=== PATIENT | male | born 1960 | race Asian ===

== ENCOUNTER → 2023-08-12 17:55 | Outpatient (REF) | payer OTHER, SELFPAY | LOC: RAD 17:55 | PROVIDERS: ATTENDING PHYSICIAN Nurse Practitioner Family; FAMILY PHYSICIAN Internal Medicine | DX: M25.562 Pain in left knee (principal) | CPT/HCPCS: 73564 ==

== ENCOUNTER 2023-08-16 09:45 | Outpatient (RCR) | payer OTHER, SELFPAY | END 2023-08-16 23:59 | disposition home or self-care (01) | LOC: RPT 09:45 | PROVIDERS: ATTENDING PHYSICIAN Nurse Practitioner Family; FAMILY PHYSICIAN Internal Medicine | DX: M25.562 Pain in left knee (principal); Z73.6 Limitation of activities due to disability; M62.81 Muscle weakness (generalized) | CPT/HCPCS: 97110; 97116; 97162 ==

== ENCOUNTER 2023-09-09 11:30 | Inpatient (IN) | payer OTHER, SELFPAY ==
[2023-09-05] VITALS (13 sets, daily range): BP systolic 91–127; BP diastolic 61–83; BMI 21.8; BMI 22.5
--- NOTE | 2023-09-05 12:58 | ED.GENMED ---
History of Present Illness
General
Chief Complaint: Chest Pain
Source: patient
Exam Limitations: none
Time Seen by Provider: 09/05/23 12:40
Travel History
Have you had any contact with someone who has COVID-19?: No
Do you have any symptoms of coronavirus? Fever > 100 degrees, chills, cough, shortness of breath, sore throat, loss of taste or smell, muscle aches, or headache?: No
History of Present Illness
History of Present Illness:
Patient presents to the emergency department with upper chest pain radiating to the anterior neck. Symptoms started while he was on the phone call around noon today. States he had some sweatiness with the pain and mild nausea. Pain did not
radiate into back or shoulders. Received full dose aspirin and nitro and route by medics. States nitro improved his symptoms slightly. No recent stress testing.
Phy Exam
Physical Exam
Physical Exam:
GENERAL APPEARANCE: NAD, well developed/ well nourished
EYES lids/conjunctiva normal
EARS/NOSE/THROAT Mucous membranes moist, uvula midline without oral pharyngeal erythema, exudate or swelling
HEAD/NECK normocephalic atraumatic, neck is supple.
RESPIRATORY respiratory effort normal, speaks in full sentences, no accessory muscle use. Lungs clear to auscultation without rhonchi, wheezes, rales
CARDIAC Regular rate and rhythm, no edema, equal 4 ext pulses
ABDOMINAL Soft, ND/NT. No pulsatile masses on exam, rebound tenderness, Desir sign or pain over Mcburney's point.
MUSCLES/EXTREMITIES No abnormal range of motion, no swelling.
SKIN Warm, pink and dry. No rashes
NEUROLOGICAL Speech is clear and appropriate. Normal level of consciousness. 5/5 strength in all extremities.
PSYCH Normal mood and affect. Judgement/competence is appropriate
Scores
Heart Score for Chest Pain Patients
STEMI patient?: No
History: Moderately Suspicious
ECG: Significant ST-Depression
Age: >45 - <65 years
Risk Factors: No Risk Factors
Troponin: </= Normal Limit
Heart Score for Chest Pain Patients: 4
Heart Score Risk: 20.3% MACE over next 6 weeks
Course
Orders/Labs/Results
Orders:
Orders
09/05/23 12:44
EKG [Electrocardiogram (*1)] Urgent
Reason for Study: Chest Pain
09/05/23 12:45
EKG- Treatment ONCE
09/05/23 12:52
CR Chest - 2 Views Urgent
Comment:
Reason For Exam: chest pain
Pulse Ox/cont/shift [RESP] Stat
Quantity: 1
09/05/23 12:58
Basic Metabolic Panel Urgent
Cardiovascular Evaluation Urgent
Comment: ADD ON
Complete Blood Count/With Diff Urgent
Troponin I Q3H
09/05/23 14:30
Morphine Sulfate 4 mg IV NOW STA
Nitroglycerin Sublingual [Nitrostat (Sublingual)] 0.4 mg SL NOW STA
09/05/23 14:31
Electrocardiogram (*1) Urgent
Reason for Study: Chest Pain
09/05/23 Dinner
Cholesterol Lowering
09/05/23 15:53
Troponin I Q3H
09/05/23 17:11
Add On- LAB Urgent
Tests Added?: CVE
09/05/23 18:01
CARDIOLOGY CONSULT Routine
Consulting Provider: Shen Arredondo
Was physician already notified: Yes
Reason for consult: chest pain ekg changes
09/05/23 18:02
Admit/Transfer Patient As Directed
Co-Sign Provider:
Level of Care: Observation services
Assign to:: Telemetry
Physician / Group: gilberto bell
Diagnosis: chest pain concern acs
Reason for Telemetry: Chest Pain syndromes
Date to Stop Telemetry: 09/07/23
Time to Stop Telemetry: 11:00
Reason for Hospitalization: chest pain concern acs
Code Status As Directed
Resuscitation Status: Full Code
09/05/23 18:07
Pantoprazole [Protonix] 40 mg PO NOW STA
09/05/23 19:36
Activity As Directed
Activity Level: As Tolerated
Vital Signs As Directed
Frequency: Per unit guidelines
Ot Eval And Treat Routine
Pt Eval And Treat Routine
Activity Level: As Tolerated
DX Deep Vein Thrombosis Video Routine
09/05/23 20:00
Heparin 5,000 units SC Q12
09/06/23 06:00
Echo 2D MMode Color/Doppler IN AM
Reason for Study: chest pain
NPO
Allow oral meds: Yes
Allow clear liquids: No
NPO with Ice Chips: No
Basic Metabolic Panel IN AM
Complete Blood Count/With Diff IN AM
09/06/23 08:00
Aspirin Chewable [Low Strength Aspirin] 81 mg PO DAILY
Pantoprazole [Protonix IV] 40 mg IV DAILY
09/07/23 11:00
DC Protocol for Telemetry ONCE
Abnormal Lab Results
09/05/23
12:58
Sodium 133 L mmol/L
(135-145)
09/05/23 12:58
09/05/23 12:58
Vital Signs
Initial and Last Documented VS:
Initial Vital Signs
BP
113/83
09/05/23 12:42
Last Documented Vital Signs
Temp Pulse Resp BP Pulse Ox
98.1 F 86 13 106/63 95
09/05/23 12:47 09/05/23 19:30 09/05/23 19:30 09/05/23 19:00 09/05/23 19:30
*Critical Care Note
Total Time (30-74mins, 75-104mins- exclusive of procedures): Not Applicable
ED Attending Note
ED Attending Note
ED Attending Note:
Patient presents the emergency department with centralized chest pain radiating into neck. Did have associated nausea and diaphoresis. Currently appears well and nontoxic. EKG without STEMI but subtle anterior ST depressions. No prior EKG
available. Plan for rule out ACS with multiple set troponin. Do not suspect PE or aortic syndrome clinically.
Patient with recurrence of pain. Repeat EKG shows resolution of prior ST abnormality. Second troponin slightly uptrending though still not positive. Discussed with kier drier on-call Dr. Calles. She evaluated the patient and plans on doing a
left heart cath tomorrow. Recommends against heparin at this time without positive troponin.
-
Portions of this chart may have been created with voice recognition software.� Occasional wrong word or��sound alike� substitutions may have occurred due to the inherent limitations of voice recognition software.
Discharge Plan
Departure
Patient Disposition: Admit
Date of Disposition: 09/05/23
Time of Disposition: 17:22
Admit to: Telemetry
Admit to doctor: Shon
Presentation/result/management discussed w/ accepting MD/DO: Hospitalist
Discharge Problem:
Chest pain
Interventions
Interventions:
*Risk Screen - Suicide Last Done: 09/05/23 12:51
*General Assessment Last Done: 09/05/23 12:49
*Neglect/Abuse Screening Last Done: 09/05/23 12:51
ED- Fall Risk Assessment Last Done: 09/05/23 13:14
*ED COVID-19 Vaccine History Last Done: 09/05/23 12:51
*Nursing Disposition Last Done: 09/05/23 19:33
ED- Cardiac Assessment Last Done: 09/05/23 13:14
Discharge Date and Time
Discharge Date/Time: 09/05/23 19:33
[2023-09-05 13:09] LABS: % Eosinophils 2.2 % (0-6); % Immature Granulocytes 0.4 % (0-0.5); % Lymphocytes 29.3 % (20.5-51.1); % Monocytes 6.5 % (1.7-9.3); % Neutrophils 60.6 % (42.2-75.2); Absolute Basophils 0.1 10^3/uL (0-0.2); Absolute Eosinophils 0.2 10^3/uL (0-0.7); Absolute Lymphocytes 2.2 10^3/uL (1.2-3.4); Absolute Monocytes 0.5 10^3/uL (0.1-0.6); Absolute Neutrophils 4.5 10^3/uL (1.4-6.5); Hematocrit 45.3 % (39.0-52.0); Hemoglobin 15.7 g/dL (13.0-18.0); Mean Corp Hgb Conc. 34.7 g/dL (33.0-37.0); Mean Corpuscular Hgb 29.8 pg (27.0-31.0); Mean Platelet Volume 7.8 fL (7.4-10.4); Nucleated Red Blood Cells % 0 % (-); Platelet Count 309 10^3/uL (130-400); Red Blood Cell Count 5.27 10^6/uL (4.70-6.10); Red Cell Dist. Width 12.9 % (11.5-14.5); White Blood Cell Count 7.4 10^3/uL (4.8-10.8)
[2023-09-05 13:21] LABS: Blood Urea Nitrogen 19 mg/dl (9-20); Calcium 9.4 mg/dl (8.4-10.2); Carbon Dioxide 30 mmol/L (22-30); Chloride 100 mmol/L (98-107); Estimated Creatinine Clearance 76 ml/min; Glucose 96 mg/dl (70-99); Potassium 3.9 mmol/L (3.5-5.1); Sodium 133 mmol/L (135-145); eGFR > 60.00
[2023-09-05 13:31] LABS: Troponin I < 0.012 ng/ml
--- NOTE | 2023-09-05 14:39 | PHANOTE ---
09/05/2023, med rec tech, spoke to pt. to obtain his med. history; pt. states to take Xiidra 5% (1 drop both eyes) dailyprn for dry eyes but could not confirm with his pharmacy or [facility] records.
[2023-09-05] MEDS: MORPHINE SULFATE 4 MG IV (14:43)
[2023-09-05] MEDS: NITROSTAT (SUBLINGUAL) 0.400000000000000022 MG SL (14:45)
[2023-09-05 16:27] LABS: Troponin I 0.029 ng/ml
--- NOTE | 2023-09-05 16:48 | CON.CAR ---
Addendum entered and electronically signed by Soco Mitchell DO 09/05/23 18:30:
I saw and examined the patient.
The Assistant Production Manager's note was reviewed and I agree with the note.
Comment: Patient seen and examined in ED bed 7 along with his friend Volodymyr. Patient is a 63-year-old male with history of long COVID following infection in 2019 that did not require hospitalization, childhood asthma and hyperlipidemia not on
medical therapy who presented to [facility] with recurrent episodes of chest pain. He denies a history of hypertension diabetes or known coronary artery disease. He has no history of thromboembolic disease. No family history significant
for premature coronary artery disease. He had history of palpitations in 2020 and underwent echo and Holter monitor with normal findings. He recently injured his knee at work and was put on a Medrol Dosepak which he completed on Saturday. He
takes ibuprofen infrequently and not daily. He was swimming at [facility] on Saturday and developed chest tightness which was in his upper chest and radiated to his neck. Symptoms resolved at rest. He has had several episodes of recurrent
chest pain since Saturday. Symptoms last anywhere from 10 to 20 minutes and do not resolve with as needed Tums. He developed pain again while at work on a telephone call dealing with computer issues which prompted him to call 911. He received
sublingual nitroglycerin by EMS with improvement of symptoms. He developed pain again in the ED with improvement after morphine. He is currently chest pain-free
General: No acute distress, AAOX3
Neck: Negative JVD
Heart: Regular, Negative S3 positive S1/S2, Negative S4, No murmur
Lungs: CTA b/l, negative wheezes/rales/rhonchi
Abd: Positive BS, NT/ND, neg rebound/rigidity/guarding
Ext: Negative cyanosis/clubbing/edema
Neuro: nonfocal
Plan:
Chest pain concerning for unstable angina currently chest pain-free
-Initial EKG with mild ST depression/sagging in V2 through V5, improved by repeat EKG
-Initial troponin negative, repeat 0.029. trend troponin to peak
-Start aspirin 81 mg daily. If recurrent chest pain or troponins positive would start IV heparin
-Telemetry monitoring.
-Discussed concerns for coronary artery disease. Reviewed recommendations for left heart catheterization and answered all questions. Patient is agreeable to proceed.
-Check 2D echocardiogram in the morning
-Check lipid profile and hemoglobin A1c
Original Note:
Consultation
Consultation Request
Date/Time Consultation Performed: 09/05/23
Requesting Provider: Dr. Hendrickson
Performing Provider: Dr. Mitchell
Reason for Consultation: CP
Medical History
-
Chief Complaint: CP
History of Present Illness:
Patient is a 63-year-old male with history of possible long COVID, childhood asthma, HLD who presents to [facility] emergency room for evaluation of chest pain. He was last seen by us for atypical chest discomfort, palpitations in 2020 and
underwent 5-day case monitor and echocardiogram -both of which were without significant abnormalities or findings. He now presents with upper chest discomfort with radiation to his neck which started over the weekend. He had been on a medrol
dose pack recently for his knee. He states with swimming this past Saturday he initially developed the discomfort. He stopped and it improved. He then had it several additional times over the weekend. He tried taking tums without improvement. Then
again today he developed the pain while on the phone at work prompting him to call 911 and come in for eval. No radiation of pain to his back, arms, or jaw. He received aspirin and sublingual nitro by EMS with some improvement in symptoms. He
developed pain again in ER received morphine with improvement. Initial troponin negative, second 0.029. Initial EKG with [address] depression/sagging in V2 through V5, improved on repeat EKG. Cardiology consulted for evaluation.
PMH:
History of possible long COVID
childhood asthma
HLD
Past Medical History
Past Medical History: Other (in HPI)
Social History
Tobacco: Non-Smoker
Alcohol: Other (rare)
Personal: Single
Employment: Employed
Family History
Family History: CAD (maternal uncles)
Allergies / Home Medications
Allergy/AdvReac Type Severity Reaction Status Date / Time
No Known Allergies Allergy Unverified 09/05/23 12:44
�Medication �Instructions �Recorded �Confirmed �Type
[place] 3 1 tab PO DAILY 09/05/23 09/05/23 History
ibuprofen 200 mg tablet (Advil) 100 mg PO DAILYPRN PRN knee pain 09/05/23 09/05/23 History
lifitegrast 5 % eye drops in a 1 drp BOTH EYES DAILYPRN PRN dry 09/05/23 History
dropperette (Xiidra) eyes
therapeutic multivitamin 0.5 tab PO DAILY 09/05/23 09/05/23 History
Review of Systems
-
History Source: Patient
All other systems: Negative unless noted
Physical Exam
Vital Signs
Temp Pulse Resp BP Pulse Ox
98.1 F 66 13 113/83 96
09/05/23 12:47 09/05/23 13:00 09/05/23 13:00 09/05/23 12:47 09/05/23 13:00
Lab Results
09/05/23 12:58
09/05/23 12:58
Troponin I 0.029 ng/ml D 09/05/23 15:53
Impression / Plan
-
Primary Product Development Carpenter: last seen by Dr. ALLAN Arredondo in 2020
Assessment:
Presentation with chest discomfort
History of possible long COVID
childhood asthma
HLD
Mild hyponatremia
ECHO 2020: Small LV size, EF 64%, mild LVH, mild MR, trace TR
5-day case monitor 2020: Sinus rhythm throughout with extremely rare isolated PACs and PVCs
Plan:
-Patient presents for evaluation of chest discomfort. He received 324mg aspirin and sublingual nitro with some improvement, recurred and received morphine with some improvement
-Initial EKG with mild ST depression/sagging in V2 through V5, improved by repeat EKG
-Initial troponin negative, repeat 0.029. trend troponin to peak
-story concerning for ACS
-after physician discussion with patient, will plan for cath in AM
-asa 81mg daily
-CVE in AM
-echo in AM
Data Reviewed
-
EKG: Tracing Personally Visualized and interpreted
Medical Tests (Nuc Med, Echo etc): Report Reviewed by me
Labs: Labs Reviewed by me
Old Records: Reviewed
--- NOTE | 2023-09-05 17:36 | HPS.HSE ---
Addendum entered and electronically signed by Sher Menendez MD 09/05/23 18:33:
I saw and examined the patient.
The STRAIGHT SLICING MACHINE OPERATOR's note was reviewed and I agree with the note.
64-year-old male without significant past medical history came to ER for having new onset of upper sternal/lower neck pain with some diaphoresis. Patient was provided aspirin and sublingual nitro by EMS staff. Patient denies of having previous
history of any cardiac problems or vascular disease. Patient is not a smoker.
HEENT: No pallor, cyanosis, or jaundice. Throat clear.
NECK: Supple. No JVD.
RESPIRATORY: Lungs clear to auscultation.
CVS: S1, S2 normal. RRR. No murmur, rub or gallop.
ABDOMEN: Soft, non-tender. No distension. BS+/normal.
EXTREMITIES: No peripheral cyanosis or edema.
PRODUCT MANAGEMENT SPECIALIST: AOx3. No focal deficits.
Chest pain
-Atypical in nature although does have some associated diaphoresis
-Patient taking Medrol Dosepak for recent work-related knee injury
-No previous cardiac history/non-smoker
-Minimal troponin elevation
-Patient also some minimal ST depression in V2 V4 lead with peaked T waves resolving on follow-up EKG
-Cardiology evaluated and planning to take patient for heart cath tomorrow
-Patient was provided aspirin 325 mg by EMS staff. Continue aspirin statin
-Check lipid profile and A1c
-Admit to IVU
FUll code
Original Note:
Family Physician
-
Family Physician: Flip Cazares
Chief Complaint
-
Chest pain
History of Present Illness
63-year-old male complaining of upper chest discomfort with radiation to his neck bilaterally with mild diaphoresis Today he was on the phone at work . He called 911 and was given aspirin and sublingual nitro en route by EMS. He did receive
morphine in the ER due to redevelopment of chest pain. He reports he was swimming on Saturday when he developed the same chest pain near his distal esophagus area along with fatigue. He reports he stopped swimming and it went away. He states he
has been on a Medrol pack from 08/27 - 09/02/2023 secondary to knee pain. He states he looks up the side effects which showed reflux so he decided to take Tums on Saturday and Saturday when he would have the pain but had no relief. He denies fever,
chills, palpitations, shortness of breath, cough, abdominal pain, nausea, vomit, diarrhea, urinary symptoms, recent illness it was noted he had ST depression on his EKG. He had history of palpitations in 2020 and underwent echo and Holter monitor
with normal findings. He has history of possible long COVID syndrome with intermittent chest congestion, occasional fatigue and brain fog,COVID-19 infection 2019, HLD, childhood asthma, gastric ulcers, vertigo, chronic knee pain.
Medical History
Past Medical History
Past Medical History: Reports Other
Additional Past Medical History:
possible long COVID syndrome(has occasional chest congestion, fatigue, brain fog),COVID-19 infection 2019
HLD
childhood asthma
gastric ulcers
vertigo
chronic knee pain
Past Surgical History: Reports None
Social History
Tobacco: Non-smoker
Alcohol: None
Drug: None
Personal: Partner
Employment: Employed
Family History
Family History: Other (Mother secondary lung cancer also had DM2, father living age 98 history of TIAs)
Allergies / Home Medications
Allergies reflects when Allergies were last updated in [employer].
Home Medications with original date entered in [employer]
Allergy/Medication List:
Allergies
Allergy/AdvReac Type Severity Reaction Status Date / Time
No Known Allergies Allergy Unverified 09/05/23 12:44
Home Medications
[place] 3 1 tab PO DAILY 09/05/23
ibuprofen 200 mg tablet (Advil) 100 mg PO DAILYPRN PRN knee pain 09/05/23
lifitegrast 5 % eye drops in a dropperette (Xiidra) 1 drp BOTH EYES DAILYPRN PRN dry eyes 09/05/23
therapeutic multivitamin 0.5 tab PO DAILY 09/05/23
Review of Systems
-
History Source: Patient and Family (Male friend at bedside)
A 12 point ROS was completed and negative except as noted: Yes
Constitutional: Denies Fever, Weight Loss, Fatigue or Chills
EENT: Denies Sore Throat or Runny Nose
Respiratory: Denies Cough or Trouble Breathing
Cardiac: Reports Chest Pain (Upper chest/esophageal) and Diaphoresis (1 episode); Denies Palpitations or Syncope
Abdomen/GI: Denies Abdominal Pain, Nausea, Vomiting, Diarrhea, Constipated, Bloody Stools or Black Stools
: Denies Dysuria, Frequency, Flank Pain, Incontinence, Difficulty Voiding or Urgency
Musculoskeletal: Reports Joint Pain (Chronic left knee pain); Denies Joint Swelling or Edema
Skin: Denies Itching or Rash
Neurological: Denies Dizzy, Headache or Weakness
Endocrine: Reports No Symptoms
Hematologic/Lymphatic: Reports No Symptoms
Psych: Reports Calm
Physical Exam
Vital Signs
Vital Signs
Temp Pulse Resp BP Pulse Ox
98.1 F 69 9 96/70 95
09/05/23 12:47 09/05/23 16:45 09/05/23 16:45 09/05/23 16:00 09/05/23 16:45
Physical Exam
General: Comfortable and Conversant; No Pain, Fever or Chills
HEENT: NormoCephalic, Anicteric, Moist mucous membranes, PERRLA, [place] Conjunctivae and No Ptosis
Respiratory: Clear; No Wheezes, Rales or Rhonchi
Cardiac: S1/S2 and Regular Rhythm; No Murmur, Rub, Gallop or Peripheral Edema
Breast: Deferred by me
GI: Soft, Non Tender, Non Distended, Normal Bowel Sounds and No Hepatosplenomegaly
Rectal: Deferred by Provider
Genito-urinary: Deferred by me
Musculoskeletal: No Clubbing, No Cyanosis and No Edema
Skin: Warm and Dry; No Rash
Neuro: AO x 3, No Motor Deficits, Nonfocal/grossly intact, Cranial Nerves Intact and No Sensory Deficits; No Slurred Speech, Facial Droop or Tremors
Laboratory Results
-
09/05/23 12:58
09/05/23 12:58
Laboratory Results
Troponin I 0.029 ng/ml D 09/05/23 15:53
Data Reviewed
-
Lab Data: Labs Reviewed by me
Impression/Plan
-
Impression/plan:
Inpatient telemetry
#Chest pain/abnormal EKG concern for ACS
-Mild ST depression in V2�V5 on EKG-resolved on repeat EKG
-Received sublingual nitro by EMS and aspirin 324 mg
-Troponin 0.012 >0.029 will trend third troponin
-Consult cardiology was seen at bedside plan for cath in a.m.
-N.p.o. after midnight for cath in a.m.
-Aspirin 81 mg daily
-2D echo in am
-PT/OT/rifle case repairer consult
Lipid profile today 09/05/2023
Total cholesterol 194
Triglycerides 144
LDL 100
VLDL 28
HDL 66
#Headache history daily
-Reports morning headaches resolves on own as he does not like medication
#COVID 19 infection in 2019
Patient reports possible long COVID with symptoms of intermittent chest congestion, fatigue, brain fog
#Gastric ulcers hx reported
-Iv protonix 40 mg daily
#Vertigo hx
#Chronic knee pain
Hold Advil as needed
-Just finished Medrol taper for 10�4 2023
DVT prophylaxis
Subcu heparin
[2023-09-05 17:48] LABS: HDL Cholesterol 66 mg/dl; LDL Cholesterol, Calculated 100 mg/dl; Total Cholesterol 194 mg/dl (50-199); Triglyceride 144 mg/dl (10-149); Very Low Density Lipoprotein 28 mg/dl (0-30)
[2023-09-05] MEDS: PROTONIX 40 MG PO (18:16)
[2023-09-05] MEDS: HEPARIN 5000 UNITS SC (20:53)
--- NOTE | 2023-09-05 21:27 | PTCARENOTE ---
Pt admitted into 2254- ACS- plans for metallurgy laboratory technician tomorrow- no CP at time of admission- Pt ambulates as a self with a SPC occasionally. VSS. SR on the monitor. POC discussed- pt verbalized understanding.
[2023-09-06] VITALS (14 sets, daily range): BP systolic 102–137; BP diastolic 65–94
[2023-09-06 04:44] LABS: % Basophils 1.2 % (0-2); % Eosinophils 4.6 % (0-6); % Immature Granulocytes 0.3 % (0-0.5); % Lymphocytes 37.8 % (20.5-51.1); % Monocytes 8.1 % (1.7-9.3); Absolute Basophils 0.1 10^3/uL (0-0.2); Absolute Eosinophils 0.3 10^3/uL (0-0.7); Absolute Lymphocytes 2.3 10^3/uL (1.2-3.4); Absolute Monocytes 0.5 10^3/uL (0.1-0.6); Absolute Neutrophils 2.9 10^3/uL (1.4-6.5); Hematocrit 43.5 % (39.0-52.0); Hemoglobin 14.9 g/dL (13.0-18.0); Mean Corp Hgb Conc. 34.3 g/dL (33.0-37.0); Mean Corpuscular Hgb 29.4 pg (27.0-31.0); Mean Corpuscular Volume 85.8 fL (80.0-94.0); Nucleated Red Blood Cells % 0 % (-); Platelet Count 268 10^3/uL (130-400); Red Blood Cell Count 5.07 10^6/uL (4.70-6.10); Red Cell Dist. Width 13.1 % (11.5-14.5); White Blood Cell Count 6.1 10^3/uL (4.8-10.8)
[2023-09-06 05:25] LABS: Blood Urea Nitrogen 25 mg/dl (9-20); Calcium 8.8 mg/dl (8.4-10.2); Carbon Dioxide 29 mmol/L (22-30); Chloride 105 mmol/L (98-107); Estimated Creatinine Clearance 88 ml/min; Glucose 83 mg/dl (70-99); Potassium 4.1 mmol/L (3.5-5.1); Sodium 135 mmol/L (135-145); eGFR > 60.00
--- NOTE | 2023-09-06 08:34 | PTCARENOTE ---
Rec'd pt AAOx3 w/no c/o CP or SOB; Pt reporting intermittent 'burning' throat pain which he rates as a 2-3/10. Declined anything at this time. Pt NPO for Cardiac cath today. Pt's VS stable w/HR in the 70'S & bp 119/76. Pt w/no addtl needs at this
time. Plan of care ongoing.
--- NOTE | 2023-09-06 08:48 | CM ---
Addendum entered by Maile Coelho 09/06/23 16:18:
Telephone call to [facility] to check if Brilinta 90 mg bid is in stock. [facility] states they do not have it in stock. Hopefully it will be in on Saturday. He will go home with samples.
Addendum entered by Maile Coelho 09/06/23 15:52:
Telephone call to [facility], ([phone]) to check on co-pay for Brilinta 90 mg po bid. Brilinta needs a prior auth. They are to fax the form. If he gets approved his co-pay would be $25.00 a month. He has commercial insurance so he can use the
$5.00 coupon after the prior auth approval. He can use the one month free until the prior auth is completed.
Addendum entered by Maile Coelho 09/06/23 13:12:
Met with Mr. Watson. He states his current insurance plan is with [employer]. Telephone call to [employer] to see if that coverage was still active. Coverage was discontinued on 04/11. Telephone call to [employer] to
check on pharmacy benefits under that policy. His [employer] has coverage for medical and physicians only. Will explore Good Rx coupon for him. Telephone call to [facility]. He does not have a prescription plan on file.
Original Note:
Reviewed chart. Met with Mr. Watson to review discharge plans. He states prior to admission he resides with his friend/landlord in a three story home with four steps to enter. He states he has a full flight of steps to get to bedroom/full bathroom. He
states he has a powder room on the first floor. He states prior to admission she was ambulating with a single point cane and independent with adl's. The discharge plan is to return home with his friend when medically stable.
[2023-09-06] MEDS: LOW STRENGTH ASPIRIN 81 MG PO (09:18)
[2023-09-06] MEDS: NSS (PRESERVATIVE FREE) 10 ML IV (09:18)
[2023-09-06] MEDS: PROTONIX IV 40 MG IV (09:18)
[2023-09-06] MEDS: HEPARIN SC (09:27)
--- NOTE | 2023-09-06 10:00 | W.PN.HOSP.TC ---
Today's Communication/Plan
-
LHC today
possible d/c later today
Assessment / Plan
Assessment / Plan
Chest pain
-Atypical in nature although does have some associated diaphoresis
-Patient taking Medrol Dosepak for recent work-related knee injury
-No previous cardiac history/non-smoker
-Minimal troponin elevation
-Patient also some minimal ST depression in V2 V4 lead with peaked T waves resolving on follow-up EKG
-Patient was provided aspirin 325 mg by EMS staff. Continue aspirin statin
-TC 194 LDL 100 HDL 66, A1c pending
-Cardio planning for potential LHC today
Left knee pain
-work place injury, on medrol dose pack
GERD
-patient questioning reflux symptoms, medrol use potentially explains this
-maintain on protonix daily
h/o COVID infection
h/o PUD
h/o vertigo
DVT PPX - subq heparin
full code
Anticipated Discharge: Today
Subjective/Interval History
-
Date of Service: September 06, 2023
No complaints overnight
Complaining some right trapezius muscle area pain
Objective Data
-
Labs:
Laboratory Results
09/06/23
04:28
WBC 6.1
Hgb 14.9
Hct 43.5
Plt Count 268
Sodium 135
Potassium 4.1
Chloride 105
Carbon Dioxide 29
BUN 25 H
Creatinine 0.8
Glucose 83
Calcium 8.8
Vital Signs:
Vital Signs
Temp Pulse Resp BP Pulse Ox
97.5 F 69 16 119/76 98
09/06/23 06:53 09/06/23 07:00 09/06/23 06:53 09/06/23 06:53 09/06/23 06:53
I&O
09/05/23 09/06/23 09/07/23
06:59 06:59 06:59
Intake Total 240 / 240
Balance 240 / 240
Review of Systems
-
Respiratory: Reports No Symptoms
Cardiac: Reports No Symptoms
Abdomen/GI: Reports No Symptoms
Physical Exam
-
General: No Apparent Distress and Comfortable
HEENT: Negative Oxygen
Respiratory: Clear to Auscultation
Cardiac: Regular Rhythm and S1/S2; Negative Murmur or Rub
GI: Soft, Nontender, Nondistended and Normal Bowel Sounds
Musculoskeletal: No Edema
Neuro: Awake, Alert, Oriented, No Motor Deficits and Nonfocal/Grossly Intact
Psych: Calm
--- NOTE | 2023-09-06 10:12 | PTCARENOTE ---
Report given to Anu in Cardiac brine room laborer; Dr Plummer in to see pt & obtain consent for procedure. Pt taken to laboratory chemist in bed by laboratory chemist RN's. Plan of care ongoing.
[2023-09-06 11:02] LABS: ACT-LR - POC 347 Seconds (116-155)
[2023-09-06 11:31] LABS: ACT-LR - POC 363 Seconds (116-155)
--- NOTE | 2023-09-06 11:55 | PTCARENOTE ---
Rec'd report from Izzy in the Cardiac distillery laborer; Rec'd pt back into the at 1145. Pt AAOx3 w/no c/o CP or SOB post cath. R radial band in place w/10cc of air. No signs or symptoms & bleeding or hematoma. VS stable, w/pt's HR 70's. Pt's friend at
bedside & activity restrictions post-cath discussed w/pt. Call olmos within reach. Plan of care ongoing.
[2023-09-06 11:58] LABS: Glycohemoglobin (HgbA1c) 5.8 % (4.0-5.6)
--- NOTE | 2023-09-06 12:33 | ITS.CL.CATH ---
Shipper/Receiver - Catheterization
Cardiac Catheterization
Procedure Report:
LEFT HEART CATH AND CORONARY INTERVENTION
Date of Procedure: September 06, 2023
Referring: Dr. Soco Mitchell
PROCEDURES:
1. Left heart catheterization with coronary and single-plane left ventriculography
2. Successful stenting of the proximal to mid LAD with a 3.25 x 23 mm Xience stent that was implanted at nominal pressures
3. Intravascular ultrasound
4. Post dilation of the stent with a 3.25 mm noncompliant balloon to high pressures
INDICATION: Unstable angina
ACCESS: Right radial artery, 6 Scottish sheath
HEMODYNAMICS (mmHg):
AO (s/d, m) : 103/69, 85
LV (s/d) : 105/6
LVEDP : 15
CORONARY FINDINGS
Dominance: Right
LEFT MAIN: Moderate plaque with 40% ostial narrowing. No pressure dampening with engagement of a 6 Scottish diagnostic catheter.
LEFT ANTERIOR DESCENDING: The LAD arises normally from the left main and runs in the anterior interventricular groove. There is a 95% stenosis in the proximal LAD before the first diagonal branch with a 70% stenosis spanning the origin of a small
first diagonal branch that arises from the proximal third of the LAD. The remainder of the LAD has minor irregularities with no focal obstructive stenosis. The distal LAD has a 60% stenosis. The apical LAD is supplied from distal collaterals from
the RCA.
CIRCUMFLEX: The circumflex is a medium caliber nondominant vessel. OM1 is a medium caliber vessel that is widely patent. OM 2 is small. The circumflex continues in the AV groove to supply a small posterolateral branch.
RIGHT CORONARY: The right coronary artery is a medium caliber dominant vessel that is mildly calcified over its course. The mid RCA has diffuse mild luminal irregularities but no high-grade focal obstructive stenosis. The PDA and posterolateral
branch are small.
VENTRICULOGRAPHY: Left ventriculography was performed in an GAINES projection. The digital single-plane left ventricular ejection fraction is estimated at 55%.
ANGIOPLASTY PROCEDURE DETAIL: Upon review of the diagnostic catheterization films the decision was made to proceed with percutaneous revascularization of the high-grade proximal to mid LAD stenosis. Intravenous heparin was administered and the ACT
was monitored throughout the procedure. A 180 mg loading dose of ticagrelor was given at the beginning of the coronary intervention.
The origin of the left main was cannulated with a 6 Scottish XB 3.5 guiding catheter and a short BMW guidewire was advanced to the first diagonal branch and a long BMW guidewire was advanced to the apical LAD. Balloon predilation was performed with a
2.0 x 20 mm Euphora balloon. A 3.25 x 23 mm Xience stent was then advanced over the guidewire in position with angiographic and fluoroscopic guidance. The stent was implanted in the proximal to mid LAD spanning the origin of the diagonal branch
and jailing the BMW wire. Intravascular ultrasound was then performed. The distal edge of the stent appeared to be well-approximated to the vessel wall. The midportion of the stent appeared slightly under-expanded and was postdilated with a 3.25
mm noncompliant balloon to 14 any at the distal edge of the stent and 18 any in the proximal and midportion of the stented segment.
RADIATION SUMMARY: Fluoro Time (min): 11.4, Dose (mGy): 278.2, DAP (Gy.cm2) : 19.6
CONCLUSIONS
1. Successful stenting of the proximal to mid LAD with a 3.25 x 23 mm Xience stent that was implanted at nominal pressures and postdilated to high pressures with a 3.25 mm noncompliant balloon to 14 any distally and 18 any in the proximal and
midportion of the stented segment.
2. Preserved left ventricular systolic function
RECOMMENDATIONS
1. Uninterrupted dual antiplatelet therapy for 12 months followed by lifetime aspirin
2. High intensity lipid-lowering and guideline directed medical therapy for blood pressure management
Copy to: Dr. Soco Mitchell
--- NOTE | 2023-09-06 17:56 | PTCARENOTE ---
Pt's R radial band off at 1720 w/sterile gauze & tegaderm dressing placed after removal delayed due to frequent oozing during start of air removal 2 hrs post band being placed. Pt w/no c/o CP or SOB. Pt is reporting 'pins & needles' feeling in LLE.
Pt w/+ bilat pedal pulses & neurovascular check within normal limits. Pt also report R eye 'itchiness & dryness', pt requesting some type of eye drop. This RN will contact cylinder honer physician for order. Plan of care ongoing.
--- NOTE | 2023-09-06 19:23 | PTCARENOTE ---
During shift handoff, while checking pt's R radial site w/oncoming RN, pt c/o increased 'pins & needle' sensation in the LLE & now also in the LUE. Pt c/o 5/10 headache. Pt describes pain as being his posterior head radiating to top of head. Pt
stated he 'feels dizzy'. Pt w/PMH of vertigo but describes this 'as not the same as vertigo he's had before'. Stroke screening WNL with the exception of very mild sensory difference between RLE & LLE. inbound call center agent Natural Resource Economist Dr Pacheco notified via
[employer] text. Advised to administer PRN Tylenol & continue to monitor pt. Forwarded messages from [employer] text to oncoming RN, Anita Curran. Plan of care ongoing.
[2023-09-06] MEDS: TYLENOL 650 MG PO (19:32)
[2023-09-06] MEDS: LIPITOR 40 MG PO (19:32)
--- NOTE | 2023-09-06 20:00 | PTCARENOTE ---
assumed care of pt from previous RN. pt A&Ox4, resting in bed at time of assessment. pt c/o 'pins and needles' sensation in left extremities, as well as c/o BUSTAMANTE. neuro assessment WNL. rigo RN Rachelle Davis contacted on-call doc via [employer] text. advised
to give PRN tylenol and continue to monitor for any change in symptoms. pt SR on tele-monitor. HR 70s-80s. no edema noted, palpable peripheral pulses. cath site stable. PIV intact. plan of care discussed, pt in agreement. call olmos within reach. pt
instructed to call w/ any changes in sensation of left extremities and any additional needs. see worklist for complete nursing assessment, interventions, VS, and I&Os.
[2023-09-06] MEDS: HEPARIN 5000 UNITS SC (20:23)
[2023-09-07] VITALS (9 sets, daily range): BP systolic 112–129; BP diastolic 67–89; PULSE 74–76
[2023-09-07 04:16] LABS: Blood Urea Nitrogen 17 mg/dl (9-20); Calcium 8.7 mg/dl (8.4-10.2); Carbon Dioxide 26 mmol/L (22-30); Chloride 107 mmol/L (98-107); Estimated Creatinine Clearance 101 ml/min; Glucose 93 mg/dl (70-99); Potassium 3.9 mmol/L (3.5-5.1); Sodium 136 mmol/L (135-145); eGFR > 60.00
[2023-09-07] MEDS: LOW STRENGTH ASPIRIN 81 MG PO (08:53)
[2023-09-07] MEDS: HEPARIN 5000 UNITS SC ×2 (08:53→19:40)
[2023-09-07] MEDS: BRILINTA 90 MG PO ×2 (08:54→19:39)
[2023-09-07] MEDS: PROTONIX IV 40 MG IV (08:54)
[2023-09-07] MEDS: NSS (PRESERVATIVE FREE) 10 ML IV (08:54)
--- NOTE | 2023-09-07 09:10 | W.PN.HOSP.TC ---
Addendum entered and electronically signed by Sher Menendez MD 09/07/23 18:30:
CT head negative for acute abnormality
Neurology ordered follow-up MRI brain without contrast
[facility] will keep patient on telemetry post heart catheterization and ongoing neurological issues. Patient have requested to be taken off of telemetry. D/c telemetry for now.
Original Note:
Today's Communication/Plan
-
neuro eval
hold discharge
Assessment / Plan
Assessment / Plan
Chest pain
-Atypical in nature although does have some associated diaphoresis
-Patient taking Medrol Dosepak for recent work-related knee injury
-No previous cardiac history/non-smoker
-Minimal troponin elevation
-Patient also some minimal ST depression in V2 V4 lead with peaked T waves resolving on follow-up EKG
-Patient was provided aspirin 325 mg by EMS staff. Continue aspirin statin
-TC 194 LDL 100 HDL 66, A1c 5.8
-s/p LAD JOSE placement yesterday
-Maintain on DAPT for 12 months.
Left sided numbness
-involving face/upper and lower ext
-started post procedure and worsened as day progressed
-Neuro evaluation requested
Left knee pain
-work place injury, on medrol dose pack
GERD
-patient questioning reflux symptoms, medrol use potentially explains this
-maintain on protonix daily
Prediabetic
-Hbg a1c 5.8
-f/u with PCP, carb control/exercise/weight loss will be required
h/o COVID infection
h/o PUD
h/o vertigo
DVT PPX - subq heparin
full code
Care plan discussed with cardiology
Anticipated Discharge: Within 24 hours
Subjective/Interval History
-
Date of Service: September 07, 2023
complaining of new left sided facial arm and leg numbness
no motor deficit
some head fullness and ringing in ear as well
Objective Data
-
Labs:
Laboratory Results
09/07/23
03:38
Sodium 136
Potassium 3.9
Chloride 107
Carbon Dioxide 26
BUN 17
Creatinine 0.7
Glucose 93
Calcium 8.7
Vital Signs:
Vital Signs
Temp Pulse Resp BP Pulse Ox
97.8 F 68 18 112/67 97
09/07/23 08:34 09/07/23 04:00 09/07/23 08:34 09/07/23 03:26 09/07/23 08:34
I&O
09/06/23 09/07/23 09/08/23
06:59 06:59 06:59
Intake Total 240 / 240 60 / 60
Balance 240 / 240 60 / 60
Review of Systems
-
Respiratory: Reports No Symptoms
Cardiac: Reports No Symptoms
Abdomen/GI: Reports No Symptoms
Physical Exam
-
General: No Apparent Distress and Comfortable
HEENT: Negative Oxygen
Musculoskeletal: No Edema
Neuro: Awake, Alert, Oriented and No Motor Deficits
Psych: Calm
[2023-09-07] MEDS: LIPITOR 40 MG PO (17:03)
[2023-09-07] MEDS: TYLENOL 650 MG PO (17:03)
--- NOTE | 2023-09-07 17:17 | PTCARENOTE ---
assessment and VS stable. Patient continues to complain about vague N/T L Side. Strength intact no other neuro signs. DC on hold pending MRI
--- NOTE | 2023-09-07 18:03 | W.PN.CARDCBS ---
Today's Communication / Plan
-
Post cath supportive care following stenting for unstable angina
Continue dual antiplatelet therapy and statin
Neurology consult
Impression / Plan
-
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 ALLAN Arredondo in 2020
Assessment:
Presentation with chest discomfort
History of possible long COVID
childhood asthma
HLD
Mild hyponatremia
2D echocardiogram 05/18/2021: Small LV size, EF 64%, mild LVH, mild MR, trace TR
2D echocardiogram 09/06/2023:Normal LV size and systolic function with EF estimated 55-60% by Johnson's method and mild concentric left ventricular hypertrophy. Normal RV size and systolic function. Mild MR. Trace TR. Right heart pressures could
not be determined due to paucity of TR jet. Trileaflet aortic valve without stenosis or regurgitation. No pericardial effusion. Aortic root normal in size.
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
Left heart catheterization 09/06/2023: Right dominant. Left main with moderate plaque 40% ostial narrowing without pressure dampening. LAD arises from left main with a 95% stenosis proximally before the first diagonal branch with a 70% stenosis
spanning the origin of the small first diagonal branch. Remainder of the LAD has minor luminal irregularities. Distal LAD 60% stenosis. Apical LAD supplies by distal collaterals from the RCA. Circumflex medium nondominant vessel patent. RCA
medium dominant vessel mildly calcified with diffuse luminal irregularities. PDA PL branch are small. Ventriculography with a EF estimated 55%. Successful stenting of proximal to mid LAD with a 3.25X 23 mm Xience stent
Plan:
Unstable angina without myocardial infarct status post left heart catheterization 09/06/2023 finding 95% stenosis of the proximal LAD, 70% stenosis in the LAD around the first small diagonal branch and 60% distal LAD stenosis with apical LAD supplied
by distal collaterals from the RCA in addition to 40% ostial narrowing of the left main without pressure dampening status post proximal to mid LAD with a 3.25X 23 mm Xience stent
-No further chest pain complaints
-Reviewed cath and echo findings with patient and his partner Volodymyr
-Patient reporting tingling in his hands and face since cardiac catheterization last evening without focal weakness. Discussed with medicine and will consult neurology. CT of the head without acute findings. MRI pending
-Continue uninterrupted dual antiplatelet therapy. Insurance coverage clarified yesterday regarding Brilinta. Will continue uninterrupted Brilinta 90 mg twice daily along with aspirin 81 mg daily for at least 1 year
-Lipid profile 09/05/2023 prestatin: Triglycerides 144, total cholesterol 194, LDL 100, HDL 66. Initiated on atorvastatin 40 mg daily with plan for repeat lipid profile in 3 months
-Blood pressure heart rate stable
-Post cath activity restrictions and site monitoring reviewed
Paresthesias post catheterization�neurology consulted
Prediabetes with hemoglobin A1c 5.8%�importance of normoglycemia stressed.
Progress Note - Gathering Worker
Subjective
Date of Service: September 07, 2023
Seen and examined this morning with partner Volodymyr at bedside. Patient ambulating around room. Complaining of paresthesias in the left hand, face and leg reportedly since after catheterization yesterday. Denies chest pain or pressure. No
shortness of breath. No dizziness or headaches.
Objective
Labs:
09/06/23 04:28
09/07/23 03:38
Labs
Hgb 14.9 g/dL (13.0-18.0) 09/06/23 04:28
Hct 43.5 % (39.0-52.0) 09/06/23 04:28
Plt Count 268 10^3/uL (130-400) 09/06/23 04:28
Sodium 136 mmol/L (135-145) 09/07/23 03:38
Potassium 3.9 mmol/L (3.5-5.1) 09/07/23 03:38
BUN 17 mg/dl (9-20) 09/07/23 03:38
Creatinine 0.7 mg/dL (0.7-1.3) 09/07/23 03:38
Glucose 93 mg/dl (70-99) 09/07/23 03:38
Troponins
09/05/23 09/05/23
12:58 15:53
Troponin I < 0.012 0.029 D
Vital Signs and I&O:
Vital Signs
Temp Pulse Resp BP Pulse Ox
98.5 F 74 18 127/69 98
09/07/23 16:18 09/07/23 17:00 09/07/23 16:18 09/07/23 16:16 09/07/23 16:18
Vital Signs
Temp Pulse Resp BP Pulse Ox
98.5 F 74 18 127/69 98
09/07/23 16:18 09/07/23 17:00 09/07/23 16:18 09/07/23 16:16 09/07/23 16:18
Intake & Output
09/05/23 09/06/23 09/07/23 09/08/23
06:59 06:59 06:59 06:59
Intake Total 240 / 240 60 / 60 500 / 500
Balance 240 / 240 60 / 60 500 / 500
Physical Exam
Physical Exam
General: No acute distress, AAOX3
Neck: Negative JVD
Heart: Regular, Negative S3 positive S1/S2, Negative S4, No murmur
Lungs: CTA b/l, negative wheezes/rales/rhonchi
Abd: Positive BS, NT/ND, neg rebound/rigidity/guarding
Ext: Negative cyanosis/clubbing/edema. Right radial site intact
--- NOTE | 2023-09-07 20:20 | CON.NEURO4 ---
Consultation - Neurology 4
-
CONSULTING PHYSICIAN: Maxine
REFERRING PHYSICIAN: hospitalist
DICTATED BY: Maxine
DATE/TIME OF REQUEST: 09/07/23
DATE/TIME OF CONSULTATION: 09/07/23
Reason for Consultation: numbness
History of Present Illness:
63 year-old male with onset of L sided numbness affecting face, arm and leg about 1 hour after cardiac cath. No prior stroke or similar symptoms. He also has tinnitus in his L ear and some feeling of being off balance with walking. No other
symptoms beyond a L occipital headache with some nausea. Had migraines in the 1980s.
Past Medical History: remote history of migraine, possible long covid, hld, childhood asthma, gastric ulcers, vertigo, knee pain
Surgical History: cath
Family History: father had a tia in his 60s
Social History: nonsmoker, no etoh or drug use, lives with partner, employed
Allergies
No Known Allergies Allergy (Unverified 09/05/23 12:44)
Home Medications
�Medication �Instructions �Recorded
[place] 3 1 tab PO DAILY Supplement 09/05/23
ibuprofen 200 mg tablet (Advil) 100 mg PO DAILYPRN PRN knee pain 09/05/23
lifitegrast 5 % eye drops in a 1 drp BOTH EYES DAILYPRN PRN dry 09/05/23
dropperette (Xiidra) eyes
therapeutic multivitamin 0.5 tab PO DAILY Supplement 09/05/23
ticagrelor 90 mg tablet (Brilinta) 90 mg PO BID #180 tabs 09/06/23
aspirin 81 mg chewable tablet 81 mg PO DAILY #30 tabs 09/07/23
(Children's Aspirin)
atorvastatin 40 mg tablet 40 mg PO QPM #30 tabs 09/07/23
famotidine 20 mg tablet (Pepcid) 20 mg PO DAILY #30 tabs 09/07/23
Review of Symptoms:
Patient denies any fever, headache, chest pain, shortness of breath, GI or symptoms.
�Per the HPI.�All systems are reviewed negative except above.
Vital Signs
Temp Pulse Resp BP Pulse Ox
98.5 F 74 18 127/69 98
09/07/23 16:18 09/07/23 17:00 09/07/23 16:18 09/07/23 16:16 09/07/23 16:18
Lab Results
09/06/23 04:28
09/07/23 03:38
Sodium 136 mmol/L (135-145) 09/07/23 03:38
Potassium 3.9 mmol/L (3.5-5.1) 09/07/23 03:38
BUN 17 mg/dl (9-20) 09/07/23 03:38
Glucose 93 mg/dl (70-99) 09/07/23 03:38
Calcium 8.7 mg/dl (8.4-10.2) 09/07/23 03:38
LDL Cholesterol, Calc 100 mg/dl 09/05/23 12:58
Physical Exam:
The patient is afebrile, heart sounds S1 and S2 are regular, and chest is clear to auscultation bilaterally.
NIH Stroke Scale:
I performed the NIH stroke scale on the patient on 09/07/23 at 1300. The patient scored 1 points on the NIH stroke scale assessment, which were assigned as follows: 1 for diminished sensation in RUE.
Neurologic Examination:
The patient is awake, alert and oriented x 3. He is able to follow commands and answer questions appropriately. There is no aphasia or dysarthria. On cranial nerve assessment, pupils are 3 mm bilateral, round and reactive to light and
accommodation. Visual kee are full. Extraocular movements are intact. Facial sensations are intact and bilaterally symmetrical, there is no facial asymmetry. Hearing is intact bilaterally to normal conversation volume. Tongue palate and uvula
are midline. Sternocleidomastoid strengths are full bilaterally. Motor strengths are 5/5 bilateral upper and lower extremities on medical research [place] scale. There is no drift or involuntary movement noted. Deep tendon reflexes are 2+ bilateral
upper and lower extremities and Babinski is absent bilaterally. Sensations of temperature was diminished in the R arm only. There was no extinction noted on double simultaneous stimulation. Coordination is intact by finger to nose bilaterally.
Neuro Imaging: HCT: no acute findings
Impression:
DANIEL WILSON is a 63 year old M with a complaint of L sided numbness and balance issues that started about 1 hour s/p cardiac cath. He also has a headache and some new L tinnitus. Exam shows only R arm numbness which is not consistent with his
history.
Differentials for the patient's presentation include:
1. R thalamic stroke
2. migraine variant
Patient has the following risk factors for their symptoms: age, hld
IV Tenecteplase/IAT candidacy: not a candidate given nondisabling symptoms, NIHSS of 1
Recommendations:
-start with MRI brain to clarify etiology of symptoms
-vessel imaging if needed depending upon results
-BP goal is normotension.
-already on ASA 81mg daily, Brilinta and atorvastatin
- Check hemoglobin A1C. Goal is normoglycemia.
- Check LDL. Goal LDL after stroke is <70.
-PT/OT evaluations
- DVT prophylaxis
-continue neurochecks
-Tylenol PO prn headache
Discussed patient care with: patient, hospitalist
--- NOTE | 2023-09-07 21:42 | PTCARENOTE ---
Pt AOx3 and pleasant. C/o numbness and tingling on L side. Pt reports 'distant buzzing' on L side of head. Aware of MRI scheduled for tomorrow.
[2023-09-08 06:50] VITALS: BP 103/73
[2023-09-08] MEDS: LOW STRENGTH ASPIRIN 81 MG PO (08:45)
[2023-09-08] MEDS: BRILINTA 90 MG PO ×2 (08:45→20:13)
[2023-09-08] MEDS: HEPARIN 5000 UNITS SC ×2 (08:46→20:12)
[2023-09-08] MEDS: PROTONIX 40 MG PO (08:46)
--- NOTE | 2023-09-08 09:27 | PTCARENOTE ---
received patient this am, patient still c/o of pins/needles on left side of body. MRI called to screen him and patient told me 1100 today for MRI. right radial ecchymotic, positive pulses.
--- NOTE | 2023-09-08 10:25 | PTCARENOTE ---
patient to MRI.
--- NOTE | 2023-09-08 12:00 | W.PN.CARDCBS ---
Today's Communication / Plan
-
Await MRI
Await neurologic recommendations
Continue post cath supportive care
Impression / Plan
-
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 ALLAN Arredondo in 2020
Assessment:
Presentation with chest discomfort
History of possible long COVID
childhood asthma
HLD
Mild hyponatremia
2D echocardiogram 05/18/2021: Small LV size, EF 64%, mild LVH, mild MR, trace TR
2D echocardiogram 09/06/2023:Normal LV size and systolic function with EF estimated 55-60% by Johnson's method and mild concentric left ventricular hypertrophy. Normal RV size and systolic function. Mild MR. Trace TR. Right heart pressures could
not be determined due to paucity of TR jet. Trileaflet aortic valve without stenosis or regurgitation. No pericardial effusion. Aortic root normal in size.
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
Left heart catheterization 09/06/2023: Right dominant. Left main with moderate plaque 40% ostial narrowing without pressure dampening. LAD arises from left main with a 95% stenosis proximally before the first diagonal branch with a 70% stenosis
spanning the origin of the small first diagonal branch. Remainder of the LAD has minor luminal irregularities. Distal LAD 60% stenosis. Apical LAD supplies by distal collaterals from the RCA. Circumflex medium nondominant vessel patent. RCA
medium dominant vessel mildly calcified with diffuse luminal irregularities. PDA PL branch are small. Ventriculography with a EF estimated 55%. Successful stenting of proximal to mid LAD with a 3.25X 23 mm Xience stent
Plan:
Unstable angina without myocardial infarct status post left heart catheterization 09/06/2023 finding 95% stenosis of the proximal LAD, 70% stenosis in the LAD around the first small diagonal branch and 60% distal LAD stenosis with apical LAD supplied
by distal collaterals from the RCA in addition to 40% ostial narrowing of the left main without pressure dampening status post proximal to mid LAD with a 3.25X 23 mm Xience stent
-No further chest pain complaints
-Previously reviewed cath and echo findings with patient and his partner Volodymyr
-Continue uninterrupted dual antiplatelet therapy. Insurance coverage clarified yesterday regarding Brilinta. We also discussed the importance of uninterrupted dual antiplatelet therapy and following prescribed medication dosing along with
possible complications for noncompliance.
-Will continue uninterrupted Brilinta 90 mg twice daily along with aspirin 81 mg daily for at least 1 year
-Lipid profile 09/05/2023 pre-statin: Triglycerides 144, total cholesterol 194, LDL 100, HDL 66. Initiated on atorvastatin 40 mg daily with plan for repeat lipid profile in 3 months
-Blood pressure heart rate stable
-Post cath activity restrictions and site monitoring reviewed
Paresthesias post catheterization involving left face, arm and leg, symptoms ongoing
�Neurology consulted and input appreciated
-CT of the head unremarkable
-Patient just returned from MRI, results pending
Prediabetes with hemoglobin A1c 5.8%�importance of normoglycemia stressed.
Progress Note - Leveler Helper
Subjective
Date of Service: September 08, 2023
Seen and examined. Continues to have paresthesias of the arm and leg however face has resolved. No chest pain or pressure. No shortness of breath or palpitations
Objective
Labs:
09/06/23 04:28
09/07/23 03:38
Labs
Hgb 14.9 g/dL (13.0-18.0) 09/06/23 04:28
Hct 43.5 % (39.0-52.0) 09/06/23 04:28
Plt Count 268 10^3/uL (130-400) 09/06/23 04:28
Sodium 136 mmol/L (135-145) 09/07/23 03:38
Potassium 3.9 mmol/L (3.5-5.1) 09/07/23 03:38
BUN 17 mg/dl (9-20) 09/07/23 03:38
Creatinine 0.7 mg/dL (0.7-1.3) 09/07/23 03:38
Glucose 93 mg/dl (70-99) 09/07/23 03:38
Troponins
09/05/23 09/05/23
12:58 15:53
Troponin I < 0.012 0.029 D
Vital Signs and I&O:
Vital Signs
Temp Pulse Resp BP Pulse Ox
97.9 F 74 16 103/73 96
09/08/23 06:51 09/07/23 17:13 09/08/23 06:51 09/08/23 06:50 09/08/23 08:30
Vital Signs
Temp Pulse Resp BP Pulse Ox
97.9 F 74 16 103/73 96
09/08/23 06:51 09/07/23 17:13 09/08/23 06:51 09/08/23 06:50 09/08/23 08:30
Intake & Output
09/06/23 09/07/23 09/08/23 09/09/23
06:59 06:59 06:59 06:59
Intake Total 240 / 240 60 / 60 500 / 500
Balance 240 / 240 60 / 60 500 / 500
Physical Exam
Physical Exam
General: No acute distress, AAOX3
Neck: Negative JVD
Heart: Regular, Negative S3 positive S1/S2, Negative S4, No murmur
Lungs: CTA b/l, negative wheezes/rales/rhonchi
Abd: Positive BS, NT/ND, neg rebound/rigidity/guarding
Ext: Negative cyanosis/clubbing/edema. Right radial site intact
[2023-09-08] MEDS: TYLENOL 650 MG PO (12:33)
--- NOTE | 2023-09-08 14:45 | W.PN.HOSP.TC ---
Today's Communication/Plan
-
MRA
DAPT, Statin
PT/OT
Assessment / Plan
Assessment / Plan
#Unstable Angina
#CAD
-s/p LAD JOSE placement 09/05
-Maintain on DAPT for 12 months.
-uninterrupted Brilinta 90 mg twice daily along with aspirin 81 mg daily for at least 1 year
-atorvastatin 80 mg daily
# Left-sided paresthesia
-MRi with evidence of multiple small infarcts
�most likely 2/2 to PCI
-Await neuro recs
-MRA f/u
-already on DAPT, statin
-PT/OT/Speech
Left knee pain
-work place injury
-stable
GERD
-patient questioning reflux symptoms, medrol use potentially explains this
-maintain on protonix daily
Prediabetic
-Hbg a1c 5.8
-f/u with PCP, carb control/exercise/weight loss will be required
h/o COVID infection
h/o PUD
h/o vertigo
DVT PPX - subq heparin
full code
Total time spent on today's encounter was 50 minutes which included time spent in counseling the patient/family regarding diagnosis and treatment plan as listed above, goals of care, and symptom management. Case was discussed with nursing staff,
specialists, and care coordinators/case management. All labs and imaging personally reviewed by me. Remainder the time spent in detailed review of previous records, lab data, imaging, and other medical provider documentation.
Anticipated Discharge: 24 - 48 hours
Subjective/Interval History
-
Date of Service: September 08, 2023
Patient sitting in chair, no acute events overnight.
Objective Data
-
Vital Signs:
Vital Signs
Temp Pulse Resp BP Pulse Ox
97.9 F 74 16 103/73 96
09/08/23 06:51 09/07/23 17:13 09/08/23 06:51 09/08/23 06:50 09/08/23 08:30
I&O
09/07/23 09/08/23 09/09/23
06:59 06:59 06:59
Intake Total 60 / 60 500 / 500 480 / 480
Balance 60 / 60 500 / 500 480 / 480
Review of Systems
-
History Source: Patient
All other systems: Not reviewed unless documented
Physical Exam
-
General: No Apparent Distress and Comfortable
HEENT: Negative Oxygen
Musculoskeletal: No Edema
Neuro: Awake, Alert, Oriented and No Motor Deficits
Psych: Calm
Data Reviewed
-
Diagnostic Radiology: Image personally visualized and interpreted and Report Reviewed by me
CT Scan: Image personally visualized and interpreted and Report Reviewed by me
MRI: Image personally visualized and interpreted and Report Reviewed by me
Labs: Labs Reviewed by me
[2023-09-08 15:37] VITALS: BP 116/82
--- NOTE | 2023-09-08 15:40 | PTCARENOTE ---
Stroke packet given to pt, placed on tele as discussed w/ Dr Case. Pt remains AOx3 pleasant, continues w/ tingling L side of body, from face to feet. VSS. NSR on monitor. Will continue to monitor.
--- NOTE | 2023-09-08 15:58 | W.PN.NEURO.1 ---
Today's Communication / Plan
-
mra head/neck
increase atorvastatin
Neuro Assessment/Plan
Assessment
DANIEL WILSON is a 63 year old M with a complaint of L sided numbness and balance issues that started about 1 hour s/p cardiac cath. He also has a headache and some new L tinnitus. Exam today is normal beyond a positive Romberg.
Patient has the following risk factors for their symptoms: age, hld
IV Tenecteplase/IAT candidacy: not a candidate given nondisabling symptoms, NIHSS of 1
MRI brain:
Multiple tiny acute infarcts; 4 mm acute infarct in the left cerebellum, 5 mm acute infarct involving the right superior cerebellar peduncle, and 1 mm cortical infarct in the left superior anterolateral cerebral cortex.
No abnormal intracranial enhancement.
Plan
Recommendations:
-reviewed MRI brain findings with patient
-check MRA head/neck
-BP goal is normotension.
-already on ASA 81mg daily, Brilinta and atorvastatin
-already had echo
- Check hemoglobin A1C. Goal is normoglycemia.
- LDL is 100. Goal LDL after stroke is <70. Increase atorvastatin 80mg qhs.
-PT/OT evaluations
- DVT prophylaxis
-continue neurochecks
-needs neuro f/u in 2-3 mos
Subjective/Objective
Subjective Data
Date of Service: September 08, 2023
paresthesias improving, still feels a bit off balance
Objective Data
Vital Signs
Temp Pulse Resp BP Pulse Ox
97.9 F 77 16 116/82 96
09/08/23 06:51 09/08/23 15:37 09/08/23 06:51 09/08/23 15:37 09/08/23 15:38
Lab Results
09/06/23 04:28
09/07/23 03:38
Sodium 136 mmol/L (135-145) 04/20/24 03:38
Potassium 3.9 mmol/L (3.5-5.1) 09/07/23 03:38
BUN 17 mg/dl (9-20) 09/07/23 03:38
Glucose 93 mg/dl (70-99) 09/07/23 03:38
Calcium 8.7 mg/dl (8.4-10.2) 09/07/23 03:38
LDL Cholesterol, Calc 100 mg/dl 09/05/23 12:58
Patient Allergies
No Known Allergies Allergy (Unverified 09/05/23 12:44)
Physical Exam
Extended Neurological Exam
Mood & Affect: Mood Unremarkable and Affect Unremarkable
Attention Span & Concentration: Awake, Alert and Interactive
Memory: Unremarkable
Tremor: Hand Tremor Absent and Head Tremor Absent
Speech: Quality Unremarkable, Quantity Unremarkable and Rate of Production Unremarkable
Cranial Nerve II: Left Eye: Pupillary Reactivity Unremarkable and Pupillary Size Unremarkable
Cranial Nerve II: Right Eye: Pupillary Reactivity Unremarkable and Pupillary Size Unremarkable
Cranial Nerves III, IV, : Extraocular Movement: Extraocular Movement Full in all Directions
Cranial Nerve V: Facial Sensation: Facial Sensation Unremarkable to Cold
Cranial Nerve VII: Facial Symmetry: Normal Facial Symmetry
Cranial Nerve VIII: Hearing: Unremarkable Hearing to Normal Conversational Volume
Cranial Nerves IX, X: Palate Movement: Palate Elevation Symmetric
Cranial Nerve XI: Shoulder Shrug: Unremarkable
Cranial Nerve XII: Tongue Protusion: Midline
Muscle Strength, Overall: Full Throughout
Cold Sensation: Unremarkable
Touch Sensation: Unremarkable
Coordination: [id number]-[id number] Testing Unremarkable
Babinski Sign: Absent Bilaterally
Gait & Station: Romberg Test Positive
[2023-09-08] MEDS: LIPITOR 80 MG PO (17:55)
[2023-09-08 18:50] VITALS: BP 82/69
[2023-09-08 18:51] VITALS: BP 125/80
[2023-09-08 20:11] VITALS: BP 126/76
[2023-09-08 23:01] VITALS: BP 106/67
[2023-09-09 05:19] VITALS: BP 100/65
[2023-09-09 05:35] LABS: Hematocrit 43.8 % (39.0-52.0); Hemoglobin 15.1 g/dL (13.0-18.0); Mean Corp Hgb Conc. 34.5 g/dL (33.0-37.0); Mean Corpuscular Hgb 29.6 pg (27.0-31.0); Mean Corpuscular Volume 85.9 fL (80.0-94.0); Mean Platelet Volume 8.1 fL (7.4-10.4); Platelet Count 242 10^3/uL (130-400); Red Cell Dist. Width 12.8 % (11.5-14.5); White Blood Cell Count 7.6 10^3/uL (4.8-10.8)
[2023-09-09 06:17] LABS: ALT (SGPT) 60 U/L (0-50); AST (SGOT) 73 U/L (17-59); Albumin 3.8 g/dl (3.5-5.0); Alkaline Phosphatase 49 U/L (38-126); Blood Urea Nitrogen 18 mg/dl (9-20); Calcium 9.2 mg/dl (8.4-10.2); Carbon Dioxide 27 mmol/L (22-30); Chloride 106 mmol/L (98-107); Estimated Creatinine Clearance 78 ml/min; Glucose 113 mg/dl (70-99); Sodium 137 mmol/L (135-145); Total Protein 6.2 g/dl (6.3-8.2); eGFR > 60.00
[2023-09-09 06:27] LABS: Potassium 3.7 mmol/L (3.5-5.1)
--- NOTE | 2023-09-09 07:53 | W.PN.NEURO.1 ---
Today's Communication / Plan
-
-Atorvastatin 80 mg daily
-Okay from my perspective for the planned dual antiplatelet therapy
-Goal normotension
-NIH and neurologic check
-Check MRA of the head and neck today
-No restrictions from my point of view
Neuro Assessment/Plan
Assessment
63-year-old man presented to hospital for chest pain and found to have unstable angina had left anterior descending coronary drug-eluting stent placement on 09/05, shortly after the procedure had development of left-sided arm and leg paresthesia
MRI brain demonstrated right pontine/cerebellar peduncle infarct most likely producing the left-sided paresthesia along with left-sided cerebellar hemisphere infarct and very small left frontal infarction.
Etiology is very likely atheroembolic debris from cardiac catheterization
No motor or walking deficits seen, left arm and leg paresthesia will probably improve with time
Subjective/Objective
Subjective Data
Date of Service: September 09, 2023
No acute events, has paresthesia left arm and leg, mild headache, vision, speech, walking, balance, and swallowing is okay
Objective Data
Vital Signs
Temp Pulse Resp BP Pulse Ox
98 F 67 18 100/65 98
09/09/23 04:00 09/09/23 06:00 09/09/23 04:00 09/09/23 05:19 09/09/23 04:00
Lab Results
09/09/23 05:17
09/09/23 05:17
Sodium 137 mmol/L (135-145) 09/09/23 05:17
Potassium 3.7 mmol/L (3.5-5.1) 09/09/23 05:17
BUN 18 mg/dl (9-20) 09/09/23 05:17
Glucose 113 mg/dl (70-99) H 09/09/23 05:17
Calcium 9.2 mg/dl (8.4-10.2) 09/09/23 05:17
LDL Cholesterol, Calc 100 mg/dl 09/05/23 12:58
Patient Allergies
No Known Allergies Allergy (Unverified 09/05/23 12:44)
Review of Systems
-
History Source: Patient
All other systems: Reviewed and negative
Constitutional: No Symptoms
EENT: No Symptoms Reported
Respiratory: No Symptoms
Cardiac: No Symptoms
Abdomen/GI: No Symptoms
Genitourinary: No Symptoms
Musculoskeletal: No Symptoms
Skin: No Symptoms
Neuro: Numbness
Endocrine: No Symptoms
Hematologic / Lymphatic: No Symptoms
Allergy / Immunology: No Symptoms
Physical Exam
-
General: Comfortable
Eyes: No Ptosis
HEENT: Normocephalic
Neck: No Bruits Bilaterally
Respiratory: Clear to Auscultation
Cardiac: Regular Rhythm
GI: Normal Bowel Sounds
Skin: Unremarkable
Extremities: No Clubbing
Psych: Unremarkable
Extended Neurological Exam
Mood & Affect: Mood Unremarkable and Affect Unremarkable
Attention Span & Concentration: Awake, Alert and Interactive
Memory: Unremarkable
Tremor: Hand Tremor Absent
Involuntary Movement: None
Speech: Quality Unremarkable and Quantity Unremarkable; Negative Expressive Aphasia, Receptive Aphasia or Dysarthric
Cranial Nerve II: Left Eye: Pupillary Reactivity Unremarkable, Pupillary Size Unremarkable and Visual Tirado Intact
Cranial Nerve II: Right Eye: Pupillary Reactivity Unremarkable, Pupillary Size Unremarkable and Visual Tirado Intact
Cranial Nerves III, IV, : Extraocular Movement: Extraocular Movement Full in all Directions
Cranial Nerve V: Facial Sensation: Facial Sensation Unremarkable to Cold
Cranial Nerve VII: Facial Symmetry: Normal Facial Symmetry
Cranial Nerve XI: Shoulder Shrug: Unremarkable
Cranial Nerve XII: Tongue Protusion: Midline
Muscle Strength, Overall: Full Throughout
Pronator Drift: No Drift in Upper Extremities
Deep Tendon Reflexes: Unremarkable Throughout
Touch Sensation: Other (Hyperasthesia on left arm and leg)
Coordination: [id number]-[id number] Testing Unremarkable and Reaches for Objects without Difficulty
Babinski Sign: Absent Bilaterally
Gait & Station: Unremarkable Arm Swing and Up from Seated Without Problem
Data Reviewed
-
MRI Head: Report Reviewed and Image Reviewed
MRA Head: Ordered and Pending
MRA Neck: Ordered and Pending
Labs: Report Reviewed
[2023-09-09 08:04] VITALS: BP 122/88
[2023-09-09] MEDS: TYLENOL 650 MG PO (08:11)
[2023-09-09] MEDS: PROTONIX 40 MG PO (08:12)
[2023-09-09] MEDS: LOW STRENGTH ASPIRIN 81 MG PO (08:12)
[2023-09-09] MEDS: BRILINTA 90 MG PO (08:12)
[2023-09-09] MEDS: HEPARIN 5000 UNITS SC (08:12)
[2023-09-09] MEDS: FLUSH (NSS) 1 FLUSH IV (08:18)
--- NOTE | 2023-09-09 08:22 | PTCARENOTE ---
patient c/o headache, Tylenol po given as ordered. patient also stated that he was claustrophobic when he was in the MRI will reach out to doctor to see if we can give him something to help him before his MRI today. patient is also concerned about
cost of medication, will notify case management. patient still c/o left sided numbness/tingling when he touches arm and leg. monitor NSR, VSS.
--- NOTE | 2023-09-09 10:27 | CM ---
Reviewed chart. Met with Mr. Watson and his friend to review discharge plans. Reviewed with his that his Brilita needs a prior auth. Faxed the prior auth. paperwork to [facility] Office. He has samples of Brilinta. I also gave him the one month free coupon
to use until the prior auth is completed. He also has the $5.00 coupon to use after the prior auth is completed. Prior to admission he resides with his friend/landlord in a three story home with four steps to enter. He has a full flight of steps
to get to bedroom/full bathroom. He has a powder room on the first floor. Prior to admission he was ambulating with a single point cane. He has a single point cane. He was independent with adls. He has a prescription plan and uses [facility].
Medical work-up in progress. The discharge plan is to return home with his friend when medically stable.
[2023-09-09 11:13] VITALS: BP 132/76
[2023-09-09] MEDS: NSS (PRESERVATIVE FREE) 0.5 ML IV (11:45)
[2023-09-09] MEDS: ATIVAN 1 MG IV (11:45)
--- NOTE | 2023-09-09 11:47 | PTCARENOTE ---
MRI called and ready for patient. 1 mg IV Ativan given as ordered.
--- NOTE | 2023-09-09 11:54 | PTCARENOTE ---
to MRI via stretcher accompanied by [facility]. staff. monitor taken off for test.
[2023-09-09 11:55] VITALS: PULSE 83
--- NOTE | 2023-09-09 11:59 | W.PN.HOSP.TC ---
Addendum entered and electronically signed by Vinh Case MD 09/10/23 15:50:
[id number]
Original Note:
Today's Communication/Plan
-
DAPT, statin - 80 mg atorvastatin
f/u pcp, cards, neurology outpatient
Assessment / Plan
Assessment / Plan
#Unstable Angina
#CAD
-s/p LAD JOSE placement 09/05
-Maintain on DAPT for 12 months.
-uninterrupted Brilinta 90 mg twice daily along with aspirin 81 mg daily for at least 1 year
-atorvastatin 80 mg daily
-F/u cards outpatient
# Left-sided paresthesia
#CVA
-MRI brain demonstrated right pontine/cerebellar peduncle infarct most likely producing the left-sided paresthesia along with left-sided cerebellar hemisphere infarct and very small left frontal infarction.
�most likely 2/2 to PCI
-MRA f/u
-already on DAPT, statin - continue
-PT/OT/Speech
Left knee pain
-work place injury
-stable
GERD
-patient questioning reflux symptoms, medrol use potentially explains this
-maintain on protonix daily
Prediabetic
-Hbg a1c 5.8
-f/u with PCP, carb control/exercise/weight loss will be required
h/o COVID infection
h/o PUD
h/o vertigo
DVT PPX - subq heparin
full code
More than 30 minutes spent in discharge including
Final examination of the patient
Summarizing hospital stay
Instructions for continuing care to all relevant caregivers
Preparation of discharge records, prescriptions, and referral forms
Total time spent (35 in minutes):
Anticipated Discharge: Today
Subjective/Interval History
-
Date of Service: September 09, 2023
No acute events overnight, paresthesias still present
Objective Data
-
Labs:
Laboratory Results
09/09/23
05:17
WBC 7.6
Hgb 15.1
Hct 43.8
Plt Count 242
Sodium 137
Potassium 3.7
Chloride 106
Carbon Dioxide 27
BUN 18
Creatinine 0.9
Glucose 113 H
Calcium 9.2
Total Bilirubin 1.0
AST 73 H
ALT 60 H
Alkaline Phosphatase 49
Vital Signs:
Vital Signs
Temp Pulse Resp BP Pulse Ox
97.6 F 78 22 132/76 96
09/09/23 11:20 09/09/23 11:13 09/09/23 11:20 09/09/23 11:13 09/09/23 11:20
I&O
09/08/23 09/09/23 09/10/23
06:59 06:59 06:59
Intake Total 500 / 500 480 / 480
Balance 500 / 500 480 / 480
Review of Systems
-
History Source: Patient
All other systems: Not reviewed unless documented
Physical Exam
-
General: No Apparent Distress and Comfortable
HEENT: Negative Oxygen
Musculoskeletal: No Edema
Neuro: Awake, Alert, Oriented and No Motor Deficits
Psych: Calm
Data Reviewed
-
Diagnostic Radiology: Image personally visualized and interpreted and Report Reviewed by me
CT Scan: Image personally visualized and interpreted and Report Reviewed by me
MRI: Image personally visualized and interpreted and Report Reviewed by me
Labs: Labs Reviewed by me
--- NOTE | 2023-09-09 12:41 | W.PN.CARDCBS ---
Addendum entered and electronically signed by Ruddy Costello DO 09/09/23 16:31:
I saw and examined the patient.
The [employer]'s note was reviewed and I agree with the note.
Comment:
Plan:
Stable cv status
Return to work form.
Reviewed meds with pt
Outpt cardiac follow up arranged.
Original Note:
Today's Communication / Plan
-
Might go home today
Return to work form completed
Cardiology f/u arranged
Cardiology office working on prior-auth for Brilinta for now can use 30 day free coupon
Impression / Plan
-
PCP: Dr. Cazares
Primary Emergency Management Coordinator: last seen by Dr. ALLAN Arredondo in 2020
Assessment:
Presentation with chest discomfort
History of possible long COVID
childhood asthma
HLD
Mild hyponatremia
CAD s/p 3.25 mm Xience to mid LAD 09/06/23
5-day hospital monitor 2020: Sinus rhythm throughout with extremely rare isolated PACs and PVCs
Echo 05/18/2021: Small LV size, EF 64%, mild LVH, mild MR, trace TR
Echo 09/06/2023:Normal LV size and systolic function with EF estimated 55-60% by Johnson's method and mild concentric left ventricular hypertrophy. Normal RV size and systolic function. Mild MR. Trace TR. Right heart pressures could not be
determined due to paucity of TR jet. Trileaflet aortic valve without stenosis or regurgitation. No pericardial effusion. Aortic root normal in size.
Plan:
-Patient came to [facility] on 09/05/23 with chest pain concerning for [place]. Troponin levels that were checked were all in the normal range and patient had cardiac cath on 09/06/23 that showed LAD disease that was stented as noted. Patient started to
experience paresthesias, but did not tell anyone until the next day.
-MRI brain showed tiny acute infarcts in the left cerebellum, right cerebellar peduncle and left cerebral cortex. Neurology notes reviewed and patient can continue with DAPT. MRA of head and neck was performed and results pending.
-Aspirin 81 mg dialy has been continued. Patient was started on Brilinta post-cath and his insurance requires a prior auth which cardiology office is working on. In the meantime he can use the free 30 day coupon and if approved his co-pay will only
be $5/month for Brilinta. If auth does not get approved then will switch to Plavix with a 600 mg loading dose give 24 hours after last dose of Brilinta. For now Brilinta is being continued.
-EF preserved by echo without significant valve disease
-LDL 100 and patient is new to atorvastatin 80 mg daily this admission
-Intermittent hypotension with BP 82/69, 100/65. Patient was not taking any BP meds prior to admission and BB not being started at this time
-Return to work form for his job with [employer] completed, made a copy for his office based eCW chart as well
-Possible d/c to home 09/09/23. Cardiology f/u arranged
Progress Note - Emergency Management Coordinator
Subjective
Date of Service: September 09, 2023
No chest pain
Objective
Labs:
09/09/23 05:17
09/09/23 05:17
Labs
Hgb 15.1 g/dL (13.0-18.0) 09/09/23 05:17
Hct 43.8 % (39.0-52.0) 09/09/23 05:17
Plt Count 242 10^3/uL (130-400) 09/09/23 05:17
Sodium 137 mmol/L (135-145) 09/09/23 05:17
Potassium 3.7 mmol/L (3.5-5.1) 09/09/23 05:17
BUN 18 mg/dl (9-20) 09/09/23 05:17
Creatinine 0.9 mg/dL (0.7-1.3) 09/09/23 05:17
Glucose 113 mg/dl (70-99) H 09/09/23 05:17
Vital Signs and I&O:
Vital Signs
Temp Pulse Resp BP Pulse Ox
97.6 F 78 22 132/76 96
09/09/23 11:20 09/09/23 11:13 09/09/23 11:20 09/09/23 11:13 09/09/23 11:20
Vital Signs
Temp Pulse Resp BP Pulse Ox
97.6 F 78 22 132/76 96
09/09/23 11:20 09/09/23 11:13 09/09/23 11:20 09/09/23 11:13 09/09/23 11:20
Intake & Output
09/07/23 09/08/23 09/09/23 09/10/23
06:59 06:59 06:59 06:59
Intake Total 60 / 60 500 / 500 480 / 480
Balance 60 / 60 500 / 500 480 / 480
Physical Exam
Physical Exam
GEN: AAOx3
HEENT: MMM
LUNGS: No audible wheeze
CV: SR on tele
ABD: ND
EXT: No edema B/L LE
NEURO: Gross non-focal
SKIN: No rash
--- NOTE | 2023-09-09 13:00 | PTCARENOTE ---
patient arrived back from MRI, patient stating the he feels 'woozy' from the Ativan, encouraged patient to stay in bed, verbalized understanding.
[2023-09-09 14:21] VITALS: PULSE 83
[2023-09-09 15:31] VITALS: BP 130/89
--- NOTE | 2023-09-09 15:31 | W.DS.TRANS ---
DC Summary - Pre Press Proofer
-
Discharge Instructions:
Discharge Diagnosis/Procedures Angioplasty and stent to Left Anterior
Descending artery
right pontine/cerebellar peduncle infarct - left
-sided paresthesia
left-sided cerebellar hemisphere infarct and
very small left frontal infarction
Diet Low Cholesterol,Diabetic, Carb Controlled,Low
Fat
Activity As tolerated
Driving Restrictions No driving for 24 hours
Bathing Restrictions OK to Shower
Other Services Cardiac Rehab
Instructions:
Stand-Alone Forms: DC Instructions- Cath/EP Lab
Changes to Home Medications: Yes
Discharge Medications:
DC Medications w/original date entered in [employer]
Mesa 3 1 tab PO DAILY Supplement 09/05/23
ibuprofen 200 mg tablet (Advil) 100 mg PO DAILYPRN PRN knee pain 09/05/23
lifitegrast 5 % eye drops in a dropperette (Xiidra) 1 drp BOTH EYES DAILYPRN PRN dry eyes 09/05/23
therapeutic multivitamin 0.5 tab PO DAILY Supplement 09/05/23
ticagrelor 90 mg tablet (Brilinta) 90 mg PO BID #180 tabs 09/06/23
aspirin 81 mg chewable tablet (Children's Aspirin) 81 mg PO DAILY #30 tabs 09/07/23
famotidine 20 mg tablet (Pepcid) 20 mg PO DAILY #30 tabs 09/07/23
atorvastatin 80 mg tablet 80 mg PO QPM 30 days #30 tabs 09/09/23
Home Medication Changes
ticagrelor 90 mg tablet (Brilinta) 90 mg PO BID #180 tabs 09/06/23
aspirin 81 mg chewable tablet (Children's Aspirin) 81 mg PO DAILY #30 tabs 09/07/23
famotidine 20 mg tablet (Pepcid) 20 mg PO DAILY #30 tabs 09/07/23
atorvastatin 80 mg tablet 80 mg PO QPM 30 days #30 tabs 09/09/23
Pending Results: No
--- NOTE | 2023-09-09 17:07 | PTCARENOTE ---
D/C instructions given to patient and friend. patient had a lot of questions, emphasized how important it is to take ALL of his medications, patient verbalized understanding. INT D/C'd, telemetry D/C'd, personal belongings packed and sent home with
patient. D/C to home via wc accompanied by staff.
== END 2023-09-09 17:53 | disposition home or self-care (01) | DRG 321 ==
LOC: IVU 11:30
PROVIDERS: Clinical Nurse Specialist Family Health; Nurse Practitioner; ADMITTING PHYSICIAN Hospitalist; ATTENDING PHYSICIAN Internal Medicine; CONSULT PHYSICIAN Psychiatry & Neurology Neurology; EMERGENCY PHYSICIAN Emergency Medicine; FAMILY PHYSICIAN Internal Medicine; OTHER PHYSICIAN Internal Medicine Cardiovascular Disease
PROC: 4A023N7 Measurement of Cardiac Sampling and Pressure, Left Heart, Percutaneous Approach (ICD-10-PCS; 2023-09-06)
PROC: 027034Z Dilation of Coronary Artery, One Artery with Drug-eluting Intraluminal Device, Percutaneous Approach (ICD-10-PCS; 2023-09-06)
PROC: B2111ZZ Fluoroscopy of Multiple Coronary Arteries using Low Osmolar Contrast (ICD-10-PCS; 2023-09-06)
PROC: B2151ZZ Fluoroscopy of Left Heart using Low Osmolar Contrast (ICD-10-PCS; 2023-09-06)
DX: I25.110 Atherosclerotic heart disease of native coronary artery with unstable angina pectoris (principal); I63.549 Cerebral infarction due to unspecified occlusion or stenosis of unspecified cerebellar artery; E87.1 Hypo-osmolality and hyponatremia; Z79.82 Long term (current) use of aspirin; K21.9 Gastro-esophageal reflux disease without esophagitis; J45.909 Unspecified asthma, uncomplicated; E78.5 Hyperlipidemia, unspecified
CPT/HCPCS: 37252; 70450; 70544; 70548; 70553; 71046; 80048; 80053; 80061; 83036; 84484; 85025; 85027; 85347; 93005; 93306; 93458; 94760; 96374; 97162; 97166; 97530; 99285; A9575; A9585; C1725; C1753; C1769; C1874; C1887; C1894; C9600; Q9967

== ENCOUNTER 2023-09-17 17:09 | Outpatient (RCR) | payer OTHER, SELFPAY | END 2023-09-17 23:59 | disposition home or self-care (01) | LOC: RPT 17:09 | PROVIDERS: ATTENDING PHYSICIAN Nurse Practitioner Family; FAMILY PHYSICIAN Internal Medicine | DX: M25.562 Pain in left knee (principal); Z73.6 Limitation of activities due to disability; M62.81 Muscle weakness (generalized) | CPT/HCPCS: 97110; 97112; 97116; 97162; 97164 ==

== ENCOUNTER 2023-09-23 19:16 | Observation (INO) | payer OTHER, SELFPAY ==
[2023-09-23] VITALS (10 sets, daily range): BP systolic 116–138; BP diastolic 68–91; BMI 22.1
[2023-09-23 09:08] LABS: % Basophils 0.8 % (0-2); % Eosinophils 3.7 % (0-6); % Immature Granulocytes 0.3 % (0-0.5); % Lymphocytes 17.7 % (20.5-51.1); % Monocytes 6.7 % (1.7-9.3); % Neutrophils 70.8 % (42.2-75.2); Absolute Basophils 0.1 10^3/uL (0-0.2); Absolute Eosinophils 0.2 10^3/uL (0-0.7); Absolute Lymphocytes 1.1 10^3/uL (1.2-3.4); Absolute Monocytes 0.4 10^3/uL (0.1-0.6); Absolute Neutrophils 4.2 10^3/uL (1.4-6.5); Hematocrit 44.9 % (39.0-52.0); Hemoglobin 15.8 g/dL (13.0-18.0); Mean Corp Hgb Conc. 35.2 g/dL (33.0-37.0); Mean Corpuscular Hgb 29.9 pg (27.0-31.0); Mean Platelet Volume 7.8 fL (7.4-10.4); Nucleated Red Blood Cells % 0 % (-); Platelet Count 337 10^3/uL (130-400); Red Blood Cell Count 5.28 10^6/uL (4.70-6.10); Red Cell Dist. Width 12.8 % (11.5-14.5); White Blood Cell Count 5.9 10^3/uL (4.8-10.8)
[2023-09-23 09:23] LABS: ALT (SGPT) 48 U/L (0-50); AST (SGOT) 31 U/L (17-59); Albumin 4.2 g/dl (3.5-5.0); Alkaline Phosphatase 62 U/L (38-126); Blood Urea Nitrogen 16 mg/dl (9-20); Calcium 9.4 mg/dl (8.4-10.2); Carbon Dioxide 29 mmol/L (22-30); Chloride 104 mmol/L (98-107); Glucose 119 mg/dl (70-99); Sodium 136 mmol/L (135-145); Total Bilirubin 0.9 mg/dl (0.2-1.3); Total Protein 6.9 g/dl (6.3-8.2); eGFR > 60.00
[2023-09-23 09:35] LABS: Troponin I < 0.012 ng/ml
--- NOTE | 2023-09-23 09:46 | ED.GENMED ---
History of Present Illness
<Vicki Ott NP - Last Filed: 09/24/23 07:43>
General
Chief Complaint: Chest Pain
Source: patient
Exam Limitations: none
Time Seen by Provider: 09/23/23 09:09
Nursing documentation reviewed up to this point in time: agreed with
Travel History
Have you had any contact with someone who has COVID-19?: No
Do you have any symptoms of coronavirus? Fever > 100 degrees, chills, cough, shortness of breath, sore throat, loss of taste or smell, muscle aches, or headache?: No
History of Present Illness
History of Present Illness:
63-year-old male admitted 09/04-09/09 w history of chest pain with stent on 09/05/2023 then 2 hours after the cardiac cath he had a stroke with tingling and weakness his entire left side, the symptom has improved some but he still has tingling and
sensitivity his entire left side. Discharge diagnoses: angioplasty and stent to left anterior descending artery. 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
infarction.
He states 3 days ago he had an episode of sharp left upper chest pain that he thought was due to GERD and he took Tums with relief.
11 AM yesterday he experienced pain across his upper chest 'really tight,' 12/27 and that pain has been waxing and waning since .
630 this morning he developed a similar pain 10/27 to 12/27 waxing and waning which radiated up his neck to the back of his head with a headache of 10/27. Took Tylenol 500 mg with a little relief.
At the same time this morning, while reading, he became dizzy At 7:00 this morning and had to stop reading. He states he has had vertigo 3 times in the past, the last time was about a year ago. He states the dizziness is worse when turning his
head from [id number].
His new meds since the stent:
Brilinta 90
Lipitor 80
Atorvastatin 80
Baby aspirin 81
Pepcid 20
[place] oil
Past History
<Vicki Ott, LASER ENGRAVER - Last Filed: 09/24/23 07:43>
Past History
ED Past Medical History: CAD, CVA (Right pontine/cerebellar peduncle infarct - left-sided paresthesia, left-sided cerebellar hemisphere infarct and very small left frontal infarction 09/05/23), HTN and Hypercholesterolemia
ED Past Surgical History: Cardiac (angioplasty and stent to left anterior descending artery 09/05/23)
Social History
Tobacco: Non-smoker
Alcohol: None
Personal: Single
Living: with roommate
Employment: Employed
Review of Systems
<Vicki Ott, LASER ENGRAVER - Last Filed: 09/24/23 07:43>
Review of Systems
Allergies reviewed?: Yes
All Other Systems: ROS reviewed and negative except as documented in HPI and ROS
Constitutional: Denies fever
Respiratory: Denies trouble breathing
Cardiac: Reports chest pain; Denies diaphoresis or syncope
ABD/GI: Reports nausea (this a.m. retching, no vomiting, feels better now); Denies abdominal pain, vomiting, diarrhea, bloody stools or black stools
: Denies dysuria or difficulty voiding
Musculoskeletal: Reports no symptoms
Skin: Reports no symptoms
Neurological: Reports dizzy (worse with turning head side to side), headache (6-8/10 ) and numbness (left side numbness post CVA 09/05/23); Denies weakness
Phy Exam
<Vicki Ott, LASER ENGRAVER - Last Filed: 09/24/23 07:43>
Physical Exam
Physical Exam:
GENERAL: No acute distress. A&Ox3.
CONSTITUTIONAL: Afebrile.
EYES: PERRL, conjunctivae normal
Neck: Supple
ENMT: moist mucus membranes, Pharynx nl
RESPIRATORY: Regular respirations, nonlabored, lungs clear.
CARDIOVASCULAR: Regular rate and rhythm, no murmurs, no rubs.
GI: Soft, nontender, normal BS
MUSCULOSKELETAL: Moves with ease. Well perfused. No edema.
SKIN: Warm, dry, pink
PSYCH: Normal mood and affect. Well kept, interactive and appropriate
NEUROLOGIC: Awake, alert and oriented. Subjective tingling and hypersensitivity left side of body.
Scores
<Vicki Ott NP - Last Filed: 09/24/23 07:43>
Heart Score for Chest Pain Patients
STEMI patient?: No
History: Moderately Suspicious
ECG: Normal
Age: >45 - <65 years
Risk Factors: 1 or 2 Risk Factors
Troponin: </= Normal Limit
Heart Score for Chest Pain Patients: 3
Heart Score Risk: 2.5% MACE over next 6 weeks
<Melissa Appiah MD - Last Filed: 10/03/23 12:49>
Heart Score for Chest Pain Patients
Heart Score for Chest Pain Patients: 3
Heart Score Risk: 2.5% MACE over next 6 weeks
Course
<Vicki Ott LASER ENGRAVER - Last Filed: 09/24/23 07:43>
Orders/Labs/Results
Orders:
Orders
09/23/23 08:25
ECG [Electrocardiogram (*1)] Urgent
Reason for Study: Chest Pain
EKG- Treatment ONCE
09/23/23 08:58
Complete Blood Count/With Diff Urgent
Comprehensive Metabolic Panel Urgent
Troponin I Urgent
09/23/23 Lunch
Cholesterol Lowering
At Your Request: Full Participation
Cholesterol Lowering: Sodium, 2 Gram
09/23/23 10:52
MRI Brain [MR Brain Without Contrast] Urgent
Comment:
Reason For Exam: dizziness, recent CVA post cardiac cath
OK for patient to be off Cardiac Monitoring for MRI: Yes
Recent pill cam endoscopy?: No
09/23/23 10:53
Diazepam [Valium] 2 mg PO NOW STA
09/23/23 14:22
Case Management Consult ONCE
Case Management Consult: Discharge Planning
Comment: needs VN follow up please.
09/23/23 14:45
Mag Hydrox/Al Hydrox/Simeth [Maalox] 30 ml Phenobarb/Hyoscy/Atropine/Scop [] 10 ml Viscous Lidocaine 2% [Xylocaine Viscous Cup] 10 ml PO NOW
09/23/23 15:09
Mag Hydrox/Al Hydrox/Simeth [Maalox] 30 ml .ROUTE .STK-MED ONE
Phenobarb/Hyoscy/Atropine/Scop [] 10 ml .ROUTE .STK-MED ONE
Viscous Lidocaine 2% [Xylocaine Viscous Cup] 15 ml .ROUTE .STK-MED ONE
09/23/23 16:28
Ondansetron Orally Disint [Zofran Odt (Orally Disintegrating)] 4 mg PO NOW STA
09/23/23 16:29
Diazepam [Valium] 5 mg PO NOW STA
09/23/23 17:50
Admit/Transfer Patient As Directed
Co-Sign Provider:
Level of Care: Observation services
Assign to:: Telemetry
Physician / Group: elana/medicine
Diagnosis: dizziness
Reason for Telemetry: Arrhythmia
Date to Stop Telemetry: 09/26/23
Time to Stop Telemetry: 11:00
09/23/23 17:53
Code Status As Directed
Resuscitation Status: Full Code
09/23/23 18:26
CARDIOLOGY CONSULT Routine
Consulting Provider: Brad Bella
Was physician already notified: Yes
Troponin I Q6H
09/23/23 20:41
Atorvastatin [Lipitor] 80 mg PO QPM
Bisacodyl [Dulcolax] 10 mg RECTAL [id number] PRN
Docusate W/Senna [Senokot-S] 1 tablet PO BIDPRN PRN
Lactated Ringers [Lr] 1,000 ml IV 75 mls/hr
Meclizine [Antivert] 25 mg PO Q8HPRN PRN
Polyethylene Glycol Powder [Miralax] 17 grams PO DAILYPRN PRN
Ticagrelor [Brilinta] 90 mg PO BID
09/23/23 20:41
Activity As Directed
Activity Level: As Tolerated
Vital Signs As Directed
Frequency: Per unit guidelines
Ot Eval And Treat Routine
Pt Eval And Treat Routine
Activity Level: As Tolerated
DX Deep Vein Thrombosis Video Routine
09/23/23 20:52
TSH Routine
Troponin I Stat
09/24/23 00:00
Heparin 5,000 units SC Q8
09/24/23 03:35
Complete Blood Count/No Diff IN AM
Comprehensive Metabolic Panel IN AM
Magnesium IN AM
09/24/23 Breakfast
Cholesterol Lowering
At Your Request: Full Participation
09/24/23 08:00
Aspirin Chewable [Low Strength Aspirin] 81 mg PO DAILY
Famotidine [Pepcid] 20 mg PO DAILY
09/26/23 11:00
DC Protocol for Telemetry ONCE
Abnormal Lab Results
09/23/23
08:58
Absolute Lymphs (auto) 1.1 L 10^3/uL
(1.2-3.4)
Lymphocytes % 17.7 L %
(20.5-51.1)
Glucose 119 H mg/dl
(70-99)
09/23/23 08:58
09/23/23 08:58
Vital Signs
Initial and Last Documented VS:
Initial Vital Signs
Temp Pulse Resp BP Pulse Ox
98.0 F 78 16 137/91 98
09/23/23 08:34 09/23/23 08:34 09/23/23 08:34 09/23/23 08:34 09/23/23 08:34
Last Documented Vital Signs
Temp Pulse Resp BP Pulse Ox
98.0 F 81 18 146/79 96
09/24/23 10:55 09/24/23 10:55 09/24/23 10:55 09/24/23 10:55 09/24/23 10:55
River Rafting Guide consulted with Physician
River Rafting Guide consulted with physician?: Yes
Name of Physician Consulted: Bijal
<Melissa Appiah MD - Last Filed: 10/03/23 12:49>
Orders/Labs/Results
Orders:
Orders
09/23/23 08:25
ECG [Electrocardiogram (*1)] Urgent
Reason for Study: Chest Pain
EKG- Treatment ONCE
09/23/23 08:58
Complete Blood Count/With Diff Urgent
Comprehensive Metabolic Panel Urgent
Troponin I Urgent
09/23/23 Lunch
Cholesterol Lowering
At Your Request: Full Participation
Cholesterol Lowering: Sodium, 2 Gram
09/23/23 10:52
MRI Brain [MR Brain Without Contrast] Urgent
Comment:
Reason For Exam: dizziness, recent CVA post cardiac cath
OK for patient to be off Cardiac Monitoring for MRI: Yes
Recent pill cam endoscopy?: No
09/23/23 10:53
Diazepam [Valium] 2 mg PO NOW STA
09/23/23 14:22
Case Management Consult ONCE
Case Management Consult: Discharge Planning
Comment: needs VN follow up please.
09/23/23 14:45
Mag Hydrox/Al Hydrox/Simeth [Maalox] 30 ml Phenobarb/Hyoscy/Atropine/Scop [] 10 ml Viscous Lidocaine 2% [Xylocaine Viscous Cup] 10 ml PO NOW
09/23/23 15:09
Mag Hydrox/Al Hydrox/Simeth [Maalox] 30 ml .ROUTE .STK-MED ONE
Phenobarb/Hyoscy/Atropine/Scop [] 10 ml .ROUTE .STK-MED ONE
Viscous Lidocaine 2% [Xylocaine Viscous Cup] 15 ml .ROUTE .STK-MED ONE
09/23/23 16:28
Ondansetron Orally Disint [Zofran Odt (Orally Disintegrating)] 4 mg PO NOW STA
09/23/23 16:29
Diazepam [Valium] 5 mg PO NOW STA
09/23/23 17:50
Admit/Transfer Patient As Directed
Co-Sign Provider:
Level of Care: Observation services
Assign to:: Telemetry
Physician / Group: elana/medicine
Diagnosis: dizziness
Reason for Telemetry: Arrhythmia
Date to Stop Telemetry: 09/26/23
Time to Stop Telemetry: 11:00
09/23/23 17:53
Code Status As Directed
Resuscitation Status: Full Code
09/23/23 18:26
CARDIOLOGY CONSULT Routine
Consulting Provider: Brad Bella
Was physician already notified: Yes
Troponin I Q6H
09/23/23 20:41
Atorvastatin [Lipitor] 80 mg PO QPM
Bisacodyl [Dulcolax] 10 mg RECTAL [id number] PRN
Docusate W/Senna [Senokot-S] 1 tablet PO BIDPRN PRN
Lactated Ringers [Lr] 1,000 ml IV 75 mls/hr
Meclizine [Antivert] 25 mg PO Q8HPRN PRN
Polyethylene Glycol Powder [Miralax] 17 grams PO DAILYPRN PRN
Ticagrelor [Brilinta] 90 mg PO BID
09/23/23 20:41
Activity As Directed
Activity Level: As Tolerated
Vital Signs As Directed
Frequency: Per unit guidelines
Ot Eval And Treat Routine
Pt Eval And Treat Routine
Activity Level: As Tolerated
DX Deep Vein Thrombosis Video Routine
09/23/23 20:52
TSH Routine
Troponin I Stat
09/24/23 00:00
Heparin 5,000 units SC Q8
09/24/23 03:35
Complete Blood Count/No Diff IN AM
Comprehensive Metabolic Panel IN AM
Magnesium IN AM
09/24/23 Breakfast
Cholesterol Lowering
At Your Request: Full Participation
09/24/23 08:00
Aspirin Chewable [Low Strength Aspirin] 81 mg PO DAILY
Famotidine [Pepcid] 20 mg PO DAILY
09/26/23 11:00
DC Protocol for Telemetry ONCE
Abnormal Lab Results
09/23/23
08:58
Absolute Lymphs (auto) 1.1 L 10^3/uL
(1.2-3.4)
Lymphocytes % 17.7 L %
(20.5-51.1)
Glucose 119 H mg/dl
(70-99)
09/23/23 08:58
09/23/23 08:58
Vital Signs
Initial and Last Documented VS:
Initial Vital Signs
Temp Pulse Resp BP Pulse Ox
98.0 F 78 16 137/91 98
09/23/23 08:34 09/23/23 08:34 09/23/23 08:34 09/23/23 08:34 09/23/23 08:34
Last Documented Vital Signs
Temp Pulse Resp BP Pulse Ox
98.0 F 81 18 146/79 96
09/24/23 10:55 09/24/23 10:55 09/24/23 10:55 09/24/23 10:55 09/24/23 10:55
<Vicki Ott, LASER ENGRAVER - Last Filed: 09/24/23 07:43>
MDM/Problems Addressed
Differential Diagnosis Includes:
Cerebellar infarct, BPPV, [place], GERD
MDM/Problems Addressed:
63-year-old male admitted 09/04-09/09 w history of chest pain with stent on 09/05/2023 then 2 hours after the cardiac cath he had a stroke with tingling and weakness his entire left side, the symptom has improved some but he still has tingling and
sensitivity his entire left side. Discharge diagnoses: angioplasty and stent to left anterior descending artery. 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
infarction.
He states 3 days ago he had an episode of sharp left upper chest pain that he thought was due to GERD and he took Tums with relief.
11 AM yesterday he experienced pain across his upper chest 'really tight,' 12/27 and that pain has been waxing and waning since .
630 this morning he developed a similar pain 10/27 to 10 waxing and waning which radiated up his neck to the back of his head with a headache of 10. Took Tylenol 500 mg with a little relief.
At the same time this morning, while reading, he became dizzy At 7:00 this morning and had to stop reading. He states he has had vertigo 3 times in the past, the last time was about a year ago. He states the dizziness is worse when turning his
head from [id number].
EKG :NSR
Case discussed with Dr. Appiah who examined patient.
Dr. Buck consulted and recommends plain MRI of brain
2:20 PM
MRI: IMPRESSION:
There is no acute intracranial process.
Expected progression of a small focus of restricted diffusion seen on the prior MRI in the right side of the bunny. No new area of restricted diffusion to suggest an acute infarct.
Mild volume loss. Mild to moderate leukoaraiosis.
Work up here unremarkable
Pt still with mid epigastric pain. Will try GI cocktail.
Pt stable for discharge. He is very anxious about going home without knowing what is the cause of his intermittent chest pains, dizziness, etc.
Dr. Appiah in again to speak with him.
We will arrange VN visits. Case management consulted.
3:45 PM
No change in his chest/GI discomfort after GI cocktail.
Case management in and patient wants to return to work so there is nothing that she can offer him as far as home care.
Patient is asking to be discharged
Texted [employer] Dr. Arizmendi to have someone from their service reach out to him, she states he has appointment in 2 days. Pt confirms he knows this.
3:30 PM
Patient given discharge papers, RN reports that patient is actively retching and vomiting and complaining of feeling dizzy. He states this feels like his vertigo. He has Meclizine at home.
I will give him a dose of Zofran and then Valium 5 mg for vertigo.
5:15 PM
Patient no longer retching but he is concerned as he is still dizzy after the Valium, he is not comfortable going home
Discussed with Dr. Appiah who agrees to admit patient.
Hospitalist notified of admission.
Chronic conditions affecting care: CAD (recent stent) and Neurological disorder (recent cva)
<Vicki Ott LASER ENGRAVER - Last Filed: 09/24/23 07:43>
*Critical Care Note
Total Time (30-74mins, 75-104mins- exclusive of procedures): Not Applicable
ED Attending Note
<Vicki Ott NP - Last Filed: 09/24/23 07:43>
-
Portions of this chart may have been created with voice recognition software.� Occasional wrong word or��sound alike� substitutions may have occurred due to the inherent limitations of voice recognition software.
<Melissa Appiah MD - Last Filed: 10/03/23 12:49>
ED Attending Note
Patient seen and examined by attending physician: Yes
ED Attending Note:
63-year-old male status post recent heart catheterization with stent placement followed by a pontine/cerebellar stroke resulting in left-sided numbness who presents emergency department with complaints of intermittent left anterior chest wall pain
that is sometimes noted as 'sharp and sometimes noted as 'tight. He describes having the discomfort since he woke up around 6 AM this morning but he also had it yesterday and a few days ago. With this, he describes severe nausea. He took Tylenol
at 7:15 AM and his pain got better. He then went to do his reading and noted a sense of spinning, typical of vertigo that he had in the past. He describes having a prior history of BPPV. Today symptoms are very similar to that. He denies vertigo
at baseline, but notes that if he moves his head 1 where the other he has a sense of spinning associated with nausea. Patient also notes that he has discomfort in his head and less so back of his neck. He denies diplopia, dysarthria, dysphagia,
new numbness or tingling, motor weakness, clumsiness, or other complaints. Patient took his medications this morning. He expresses great anxiety regarding his recent diagnosis and what may happen. He lives with a roommate. On exam, patient awake
alert well-appearing, [id number] normal, cranial nerves II through XII intact, motor 5 out of 5, subjective decreased sense of 'texture' with light touch on the left side, no nystagmus, no photophobia, EOMI. Heart regular rate and rhythm, lungs
CTA. Exam essentially unremarkable with the exception of baseline findings. Workup in progress.
Discharge Plan
Departure
Patient Disposition: Admit
Date of Disposition: 09/23/23
Time of Disposition: 15:49
Presentation/result/management discussed w/ accepting MD/DO: Hospitalist
Patient with high blood pressure during this ER visit?: No
Condition: Fair
Discharge Problem:
Atypical chest pain, intractable dizziness
Interventions
Interventions:
*Risk Screen - Suicide Last Done: 09/23/23 21:00
*General Assessment Last Done: 09/23/23 15:22
*Neglect/Abuse Screening Last Done: 09/23/23 15:22
ED- Fall Risk Assessment Last Done: 09/23/23 18:19
*ED COVID-19 Vaccine History Last Done: 09/23/23 21:00
*Nursing Disposition Last Done: 09/23/23 20:14
ED- Cardiac Assessment Last Done: 09/23/23 08:46
Discharge Date and Time
Discharge Date/Time: 09/23/23 20:22
[2023-09-23] MEDS: VALIUM 2 MG PO (11:15)
--- NOTE | 2023-09-23 15:07 | CM ---
CM received consult for VN services for patient discharge. CM met with patient bedside, initial assessment completed. 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
Patient reports he lives with a roommate in a multiple story town home, 6 steps to enter. Patient has a cane 'just in case' but typically ambulates independently. Patient confirms PCP Flip Cazares, pharmacy [facility]. Patient reports he is still
experiencing sharp pain and would like to be monitored overnight, patient reports he does not feel comfortable going home as he is still experiencing pain. CM updated patients nurse, patient will be receiving a GI cocktail which will hopefully
improve his symptoms. CM will continue to follow for discharge planning needs.
Plan; patient requesting to be monitored overnight, discussed patient does not qualify for VN services.
[2023-09-23] MEDS: MAALOX 10 PO (15:10)
[2023-09-23] MEDS: ZOFRAN ODT (ORALLY DISINTEGRATING) 4 MG PO (16:33)
[2023-09-23] MEDS: VALIUM 5 MG PO (16:51)
--- NOTE | 2023-09-23 18:01 | HPS.HSE ---
Addendum entered and electronically signed by Vinh Case MD 09/23/23 18:54:
I saw and examined the patient.
The COMPETITIVE ATHLETE or PA's note Cornel Miranda, was reviewed and I agree with the note.
Comment:
63-year-old male with recent PCI on 09/04 with subsequent sequelae of post cath CVA now presenting for chest pain, persisting, dizziness,?� Vertigo.� Patient states he has a history of BPPV although this does not feel like similar episodes.� Does not
knowledge upper chest is tight, pressure-like that waxes and wanes.� Pain is still present.� Patient responded somewhat to Valium for possible vertigo, MRI with expected progression of the small focus of the CVA, no new acute infarct.� Suboptimal
response to GI cocktail. �Denies persistent fever, chills, cough although possibly had some diaphoresis/fever-like symptoms this morning during chest pressure/pain event.� Plan�high risk for in-stent stenosis although patient very compliant with
medications.� Will follow troponins, EKG serially, ?ECHO, x-ray.� Cardiology consulted.� Continue DAPT and statin.� PT/OT.
Original Note:
Family Physician
-
Family Physician: Flip Cazares
Chief Complaint
-
dizzy
chest pain
History of Present Illness
63-year-old male with PMH for CAD with cardiac stents, hld, presented to us with chest pain across the chest, some times on the left side of the chest since yesterday. yesterday he took Tums with some relief. today he felt the pain radiating the
neck and shoulder took Tenol with some relief . patient was admitted 09/04-09/09 w history of chest pain with stent on 09/05/2023 then 2 hours after the cardiac cath he had a stroke with tingling and weakness his entire left side. today while
reading, he became dizzy At 7:00 this morning and had to stop reading. He states the dizziness is worse when turning his head from [id number]. patient stated he gets the pain from neck up to the head. patient nauseous. feels the rooms spinning.
denied vomit. denied abdominal pain . Patient denied fever, chills. Patient denied dysuria hematuria.
Trope negative. MRI negative. Admitting for further management
Medical History
Past Medical History
Past Medical History: Reports Other
Additional Past Medical History:
Hyperlipidemia
history of duodenal ulcer
Asthma
BPV
Colon polyps
History of H. pylori
Coronary artery disease
Cerebral infraction
Past Surgical History: Reports Other
Additional Past Surgical History:
Lipoma removed
Coronary artery stent
Social History
Tobacco: Non-smoker
Alcohol: None
Drug: None
Family History
Family History: Not pertinent
Allergies / Home Medications
Allergies reflects when Allergies were last updated in [email or web address].
Home Medications with original date entered in [email or web address]
Allergy/Medication List:
Allergies
Allergy/AdvReac Type Severity Reaction Status Date / Time
No Known Allergies Allergy Verified 09/23/23 08:37
Home Medications
Montrose 3 1 tab PO DAILY Supplement 09/05/23
ibuprofen 200 mg tablet (Advil) 100 mg PO DAILYPRN PRN knee pain 09/05/23
lifitegrast 5 % eye drops in a dropperette (Xiidra) 1 drp BOTH EYES DAILYPRN PRN dry eyes 09/05/23
therapeutic multivitamin 0.5 tab PO DAILY Supplement 09/05/23
ticagrelor 90 mg tablet (Brilinta) 90 mg PO BID #180 tabs 09/06/23
aspirin 81 mg chewable tablet (Children's Aspirin) 81 mg PO DAILY #30 tabs 09/07/23
famotidine 20 mg tablet (Pepcid) 20 mg PO DAILY #30 tabs 09/07/23
atorvastatin 80 mg tablet 80 mg PO QPM 30 days #30 tabs 09/09/23
Review of Systems
-
Constitutional: Reports No Symptoms
EENT: Reports No Symptoms
Respiratory: Reports No Symptoms
Cardiac: Reports Chest Pain
Abdomen/GI: Reports No Symptoms and Nausea
: Reports No Symptoms
Musculoskeletal: Reports No Symptoms
Skin: Reports No Symptoms
Neurological: Reports Dizzy
Endocrine: Reports No Symptoms
Hematologic/Lymphatic: Reports No Symptoms
Psych: Reports No Symptoms
Physical Exam
Vital Signs
Vital Signs
Temp Pulse Resp BP Pulse Ox
98.0 F 74 21 129/77 97
09/23/23 08:34 09/23/23 15:45 09/23/23 15:45 09/23/23 16:00 09/23/23 15:45
Physical Exam
General: Well Developed, Well Nourished and No Apparent Distress
HEENT: NormoCephalic, Moist mucous membranes and Atraumatic
Respiratory: Clear
Cardiac: S1/S2 and Regular Rhythm; No Murmur or Rub
GI: Soft, Non Tender, Non Distended and Normal Bowel Sounds; No Organomegaly
Rectal: Deferred by Provider
Musculoskeletal: No Clubbing, No Cyanosis and No Edema
Skin: No Rash
Neuro: AO x 3 and Nonfocal/grossly intact
Psych: Calm
Laboratory Results
-
09/23/23 08:58
09/23/23 08:58
Laboratory Results
Total Bilirubin 0.9 mg/dl (0.2-1.3) 09/23/23 08:58
AST 31 U/L (17-59) 09/23/23 08:58
ALT 48 U/L (0-50) 09/23/23 08:58
Alkaline Phosphatase 62 U/L (38-126) 09/23/23 08:58
Troponin I < 0.012 ng/ml 09/23/23 08:58
Data Reviewed
-
MRI: Report Reviewed by me
Lab Data: Labs Reviewed by me
Impression/Plan
-
#intractable dizziness associate with nausea
# History of vertigo
-MRI brain with no acute intracranial process.Expected progression of a small focus of restricted diffusion seen on the prior MRI in the right side of the bunny. No new area of restricted diffusion to suggest an acute infarct.Mild volume loss. Mild
to moderate leukoaraiosis.
-PT/OT consulted
-Meclizine as needed for dizziness
#atypical chest pain
# CAD status post cardiac stent
-trop negative
-EKG with NSR
-Trend troponin
-EKG
-Aspirin, statin, Brilinta continued
-Obtain chest XR
-echo
-Cardiology consulted
#GERD
-maintain on Protonix daily
DVT PPX - subq heparin
full code
--- NOTE | 2023-09-23 18:48 | PHANOTE ---
09/23/2023, med rec tech, spoke to pt. to obtain their med. history; pt. states to be taking Xiidra eye drops (1 drop both eyes dailyprn for dry eyes) but not in pharmacy fill data or [facility] records; could not confirm with another source.
[2023-09-23 19:08] LABS: Troponin I < 0.012 ng/ml
[2023-09-23] MEDS: LIPITOR 80 MG PO (20:55)
[2023-09-23] MEDS: BRILINTA 90 MG PO (20:55)
[2023-09-23] MEDS: LR 1000 IV (21:09)
[2023-09-23 21:26] LABS: Troponin I < 0.012 ng/ml
[2023-09-23 21:46] LABS: TSH 0.24 uIU/ml (0.47-4.68)
--- NOTE | 2023-09-23 22:25 | PTCARENOTE ---
Patient arrived via stretcher with diagnosis of dizziness. AAOX3. Patient denies any dizziness, chest pain or SOB. Patient denies pain or discomfort. Oriented to unit. Call olmos within reach.
[2023-09-23] MEDS: HEPARIN 5000 UNITS SC (23:04)
[2023-09-24 03:41] LABS: Hematocrit 42.9 % (39.0-52.0); Hemoglobin 15.1 g/dL (13.0-18.0); Mean Corp Hgb Conc. 35.2 g/dL (33.0-37.0); Mean Corpuscular Hgb 29.9 pg (27.0-31.0); Mean Platelet Volume 7.6 fL (7.4-10.4); Platelet Count 294 10^3/uL (130-400); Red Blood Cell Count 5.05 10^6/uL (4.70-6.10); Red Cell Dist. Width 12.8 % (11.5-14.5); White Blood Cell Count 6.5 10^3/uL (4.8-10.8)
[2023-09-24 04:08] VITALS: BP 101/64
[2023-09-24 04:14] LABS: ALT (SGPT) 38 U/L (0-50); AST (SGOT) 26 U/L (17-59); Albumin 3.8 g/dl (3.5-5.0); Alkaline Phosphatase 63 U/L (38-126); Blood Urea Nitrogen 14 mg/dl (9-20); Calcium 9.3 mg/dl (8.4-10.2); Carbon Dioxide 26 mmol/L (22-30); Chloride 107 mmol/L (98-107); Estimated Creatinine Clearance 77 ml/min; Glucose 86 mg/dl (70-99); Magnesium 2.1 mg/dl (1.6-2.3); Potassium 3.8 mmol/L (3.5-5.1); Sodium 138 mmol/L (135-145); Total Bilirubin 1.1 mg/dl (0.2-1.3); Total Protein 6.1 g/dl (6.3-8.2); eGFR > 60.00
[2023-09-24 04:25] LABS: Troponin I < 0.012 ng/ml
[2023-09-24 07:30] VITALS: BP 108/63
[2023-09-24] MEDS: LOW STRENGTH ASPIRIN 81 MG PO (07:30)
[2023-09-24] MEDS: PEPCID 20 MG PO (07:30)
[2023-09-24] MEDS: BRILINTA 90 MG PO (07:30)
[2023-09-24] MEDS: HEPARIN 5000 UNITS SC (07:31)
[2023-09-24] MEDS: LR 1000 IV (08:49)
[2023-09-24 09:34] LABS: Troponin I < 0.012 ng/ml
[2023-09-24 09:59] VITALS: BP 130/88; PULSE 79
[2023-09-24 10:03] VITALS: BP 130/88
[2023-09-24 10:05] LABS: Free T4 1.79 ng/dl (0.78-2.19)
--- NOTE | 2023-09-24 10:05 | PTOTSP ---
pt currently demonstrates ability to complete simple ADLs, functional transfers, ambulation with supervision to no assistance. no acute OT needs identified at this time, will sign off.
[2023-09-24 10:55] VITALS: BP 146/79
--- NOTE | 2023-09-24 12:52 | W.PN.HOSP.TC ---
Addendum entered and electronically signed by Vinh Case MD 09/26/23 16:12:
[id number]
Original Note:
Today's Communication/Plan
-
no changes
f/u pcp, cards, neurology outpatient
Assessment / Plan
Assessment / Plan
Physical Exam
General: Well Developed, Well Nourished and No Apparent Distress
HEENT: NormoCephalic, Moist mucous membranes and Atraumatic
Respiratory: Clear
Cardiac: S1/S2 and Regular Rhythm; No Murmur or Rub
GI: Soft, Non Tender, Non Distended and Normal Bowel Sounds; No Organomegaly
Rectal: Deferred by Provider
Musculoskeletal: No Clubbing, No Cyanosis and No Edema
Skin: No Rash
Neuro: AO x 3 and Nonfocal/grossly intact
Psych: Calm
#intractable dizziness associate with nausea
# History of vertigo
-MRI brain with no acute intracranial process.Expected progression of a small focus of restricted diffusion seen on the prior MRI in the right side of the bunny. No new area of restricted diffusion to suggest an acute infarct.Mild volume loss. Mild
to moderate leukoaraiosis.
-PT/OT consulted
-Meclizine as needed for dizziness - given 1 week worth as needed
#atypical chest pain
# CAD status post cardiac stent
-EKG with NSR - no obvious acute changes
-troponins negative
-EKG
-Aspirin, statin, Brilinta continued
-cxr f/u
-no changes as per cards
-f/u cards outpatient
#GERD
-maintain on Protonix daily
DVT PPX - subq heparin
full code
More than 30 minutes spent in discharge including
Final examination of the patient
Summarizing hospital stay
Instructions for continuing care to all relevant caregivers
Preparation of discharge records, prescriptions, and referral forms
Total time spent (35 in minutes):
Anticipated Discharge: Today
Subjective/Interval History
-
Date of Service: September 24, 2023
no acute events. working with pt/ot
Objective Data
-
Labs:
Laboratory Results
09/24/23
03:35
WBC 6.5
Hgb 15.1
Hct 42.9
Plt Count 294
Sodium 138
Potassium 3.8
Chloride 107
Carbon Dioxide 26
BUN 14
Creatinine 0.9
Glucose 86
Calcium 9.3
Total Bilirubin 1.1
AST 26
ALT 38
Alkaline Phosphatase 63
Vital Signs:
Vital Signs
Temp Pulse Resp BP Pulse Ox
98.0 F 81 18 146/79 96
09/24/23 10:55 09/24/23 10:55 09/24/23 10:55 09/24/23 10:55 09/24/23 10:55
I&O
09/23/23 09/24/23 09/25/23
06:59 06:59 06:59
Intake Total 1155 / 1155
Balance 1155 / 1155
Review of Systems
-
History Source: Patient
All other systems: Not reviewed unless documented
Data Reviewed
-
CT Scan: Image personally visualized and interpreted and Report Reviewed by me
MRI: Image personally visualized and interpreted and Report Reviewed by me
Labs: Labs Reviewed by me
--- NOTE | 2023-09-24 13:04 | W.DS.TRANS ---
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
-
Discharge Instructions:
Discharge Diagnosis/Procedures vertigo
Diet Low Fat,Low Cholesterol
Activity As tolerated
Instructions:
Stand-Alone Forms:
Changes to Home Medications: Yes
Discharge Medications:
DC Medications w/original date entered in [facility]
[place] 3 1 tab PO DAILY Supplement 09/05/23
lifitegrast 5 % eye drops in a dropperette (Xiidra) 1 drp BOTH EYES DAILYPRN PRN dry eyes 09/05/23
therapeutic multivitamin 0.5 tab PO DAILY PRN Supplement 09/05/23
acetaminophen 500 mg tablet (Tylenol Extra Strength) 500 mg PO DAILYPRN PRN mild pain 09/23/23
budesonide-formoterol HFA 160 mcg-4.5 mcg/actuation aerosol inhaler (Symbicort) 1 puff inhalation R DAILY PRN congestion 09/23/23
famotidine 20 mg tablet (Pepcid) 20 mg PO QPM Gastrointestinal Issue 09/23/23
aspirin 81 mg chewable tablet (Children's Aspirin) 81 mg PO DAILY 90 days #90 tabs 09/24/23
atorvastatin 80 mg tablet 80 mg PO QPM 90 days #90 tabs 09/24/23
meclizine 25 mg tablet 25 mg PO Q8HPRN PRN dizzy 7 days #30 tabs 09/24/23
ticagrelor 90 mg tablet (Brilinta) 90 mg PO BID 90 days #180 tabs 09/24/23
Home Medication Changes
meclizine 25 mg tablet 25 mg PO Q8HPRN PRN dizzy 7 days #30 tabs 09/24/23
Pending Results: No
--- NOTE | 2023-09-24 14:35 | CM ---
CM reviewed chart and noted dc order
per chart review, pt is independent and no needs noted
Discharge Disposition- home, no needs
--- NOTE | 2023-09-24 15:04 | W.PN.CARDCBS ---
Today's Communication / Plan
-
E-scribed meds for patient
No recurrence of chest pain and Troponin serially undetectable, doubt ACS
Cardiology office follow up made
Talked with patient, prepped chart, arrange for outpatient care for 56 minutes
Impression / Plan
-
PCP: Dr. Cazares
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 ALLAN Arredondo in 2020
Assessment:
Chest pain
Vertigo and dizziness
CAD s/p 3.25 mm Xience to mid LAD 09/06/23
History of possible long COVID
childhood asthma
HLD
Mild hyponatremia
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
Echo 05/18/2021: Small LV size, EF 64%, mild LVH, mild MR, trace TR
Echo 09/06/2023:Normal LV size and systolic function with EF estimated 55-60% by Johnson's method and mild concentric left ventricular hypertrophy. Normal RV size and systolic function. Mild MR. Trace TR. Right heart pressures could not be
determined due to paucity of TR jet. Trileaflet aortic valve without stenosis or regurgitation. No pericardial effusion. Aortic root normal in size.
Echo 09/24/23: preliminary report, Normal EF, no WMA, mild MR
Plan:
-[facility] with BUSTAMANTE and vertigo and then had chest pain so cardiology has been consulted. Patient was recently admitted to 09/05/23 until 09/09/23 with chest pain. Troponin levels all normal, but due to [place] symptoms he was taken
to technical laboratory asst and had LAD PCI. Patient then had CVA after cath, but did not tell anyone about his symptoms until the next day. Patient was cleared to remain on DAPT with aspirin and Brilinta. He was discharged to home without residual CVA effects.
Patient says that he was at home when he started with vertigo and reports having had BPPV in the past. He says that his roommate was coming to a doctor's appointment locally so he asked the roommate to drop him off at the ER to get checked out
because he also had episode of chest pain on and off for days. Patient says that chest pain happens at rest and lasts for minutes to hours. In [facility] his Troponin was undetectable and no ECG changes. Patient was admitted and had an echo this morning
that was also stable. Patient says no recurrence of chest pain.
-Troponin serially undetectable and no echo or ECG changes.
-Doubt ACS. Patient compliant with Brilinta 90 mg BID and aspirin.
-Overall patient is very medically knowledgeable and is well versed in meds and denies missed doses.
-No indication for stress test or additional testing.
-Patient is asking to reschedule his office visit to 3 months from now and to see Dr. Arredondo, appt made
-Patient asking for 90 day mail-away Rx to be sent along with refills, Rx for atorvastatin and Brilinta e-scribed by me today
Progress Note - [employer] Consultant
Subjective
Date of Service: September 24, 2023
Chest pain on and off for several day recently
Objective
Labs:
09/24/23 03:35
09/24/23 03:35
Labs
Hgb 15.1 g/dL (13.0-18.0) 09/24/23 03:35
Hct 42.9 % (39.0-52.0) 09/24/23 03:35
Plt Count 294 10^3/uL (130-400) 09/24/23 03:35
Sodium 138 mmol/L (135-145) 09/24/23 03:35
Potassium 3.8 mmol/L (3.5-5.1) 09/24/23 03:35
BUN 14 mg/dl (9-20) 09/24/23 03:35
Creatinine 0.9 mg/dL (0.7-1.3) 09/24/23 03:35
Glucose 86 mg/dl (70-99) 09/24/23 03:35
Troponins
09/23/23 09/23/23 09/23/23
08:58 18:26 20:52
Troponin I < 0.012 < 0.012 < 0.012
09/24/23 09/24/23 09/24/23
00:00 03:35 06:00
Troponin I Cancelled < 0.012 Cancelled
09/24/23 09/24/23 09/24/23
09:04 12:00 15:00
Troponin I < 0.012 Cancelled Cancelled
Vital Signs and I&O:
Vital Signs
Temp Pulse Resp BP Pulse Ox
98.0 F 81 18 146/79 96
09/24/23 10:55 09/24/23 10:55 09/24/23 10:55 09/24/23 10:55 09/24/23 10:55
Vital Signs
Temp Pulse Resp BP Pulse Ox
98.0 F 81 18 146/79 96
09/24/23 10:55 09/24/23 10:55 09/24/23 10:55 09/24/23 10:55 09/24/23 10:55
Intake & Output
09/22/23 09/23/23 09/24/23 09/25/23
06:59 06:59 06:59 06:59
Intake Total 1155 / 1155
Balance 1155 / 1155
Physical Exam
Physical Exam
GEN: AAOx3
HEENT: MMM
LUNGS: No audible wheeze
CV: SR on tele
ABD: ND
EXT: No edema B/L LE
NEURO: Gross non-focal
SKIN: No rash
== END 2023-09-24 14:51 | disposition home or self-care (01) ==
LOC: 4 WEST ACU 19:16
PROVIDERS: ADMITTING PHYSICIAN Internal Medicine; EMERGENCY PHYSICIAN Emergency Medicine; FAMILY PHYSICIAN Internal Medicine
DX: R42 Dizziness and giddiness (principal); R07.89 Other chest pain; K21.9 Gastro-esophageal reflux disease without esophagitis; M54.2 Cervicalgia; R11.2 Nausea with vomiting, unspecified; E87.1 Hypo-osmolality and hyponatremia; R51.9 Headache, unspecified; I25.10 Atherosclerotic heart disease of native coronary artery without angina pectoris; I34.0 Nonrheumatic mitral (valve) insufficiency; E78.00 Pure hypercholesterolemia, unspecified; I10 Essential (primary) hypertension; R20.2 Paresthesia of skin; J45.909 Unspecified asthma, uncomplicated; Z87.19 Personal history of other diseases of the digestive system; Z86.19 Personal history of other infectious and parasitic diseases; Z95.5 Presence of coronary angioplasty implant and graft; Z86.73 Personal history of transient ischemic attack (TIA), and cerebral infarction without residual deficits; Z79.02 Long term (current) use of antithrombotics/antiplatelets
CPT/HCPCS: 93308; 70551; 71045; 80053; 83735; 84439; 84443; 84484; 85025; 85027; 93005; 93321; 93325; 97161; 97165; 99285; G0378

== ENCOUNTER 2023-10-16 17:04 | Outpatient (RCR) | payer OTHER, SELFPAY | END 2023-10-16 23:59 | disposition home or self-care (01) | LOC: RPT 17:04 | PROVIDERS: ATTENDING PHYSICIAN Nurse Practitioner Family; FAMILY PHYSICIAN Internal Medicine | DX: M25.562 Pain in left knee (principal); Z73.6 Limitation of activities due to disability; M62.81 Muscle weakness (generalized) | CPT/HCPCS: 97110; 97112; 97530 ==

== ENCOUNTER 2023-10-23 17:25 | Outpatient (RCR) | payer OTHER, SELFPAY | END 2023-10-24 07:38 | disposition home or self-care (01) | LOC: RPT 17:25 | PROVIDERS: ATTENDING PHYSICIAN Nurse Practitioner Family; FAMILY PHYSICIAN Internal Medicine | DX: M25.562 Pain in left knee (principal); Z73.6 Limitation of activities due to disability; M62.81 Muscle weakness (generalized) | CPT/HCPCS: 97110; 97112 ==

== ENCOUNTER 2023-11-18 16:13 | Outpatient (RCR) | payer OTHER, SELFPAY | END 2023-11-18 23:59 | disposition home or self-care (01) | LOC: CRHB 16:13 | PROVIDERS: ATTENDING PHYSICIAN Internal Medicine Cardiovascular Disease | DX: I25.10 Atherosclerotic heart disease of native coronary artery without angina pectoris (principal); Z95.5 Presence of coronary angioplasty implant and graft | CPT/HCPCS: 93797; 93798 ==

== ENCOUNTER → 2024-02-13 07:37 | Outpatient (REF) | payer OTHER, SELFPAY | LOC: RAD 07:37 | PROVIDERS: ATTENDING PHYSICIAN Internal Medicine Cardiovascular Disease; FAMILY PHYSICIAN Internal Medicine | DX: I25.10 Atherosclerotic heart disease of native coronary artery without angina pectoris (principal) | CPT/HCPCS: 93923; 93930 ==

== ENCOUNTER 2024-07-17 08:12 | Emergency (ER) | payer OTHER, SELFPAY ==
[2024-07-17 08:14] VITALS: BP 145/94
[2024-07-17] MEDS: TYLENOL 650 MG PO (09:32)
[2024-07-17 09:39] LABS: % Basophils 1.1 % (0-2); % Eosinophils 1.8 % (0-6); % Immature Granulocytes 0.2 % (0-0.5); % Lymphocytes 19.9 % (20.5-51.1); % Monocytes 6.5 % (1.7-9.3); % Neutrophils 70.5 % (42.2-75.2); Absolute Basophils 0.1 10^3/uL (0-0.2); Absolute Eosinophils 0.1 10^3/uL (0-0.7); Absolute Lymphocytes 1.1 10^3/uL (1.2-3.4); Absolute Monocytes 0.4 10^3/uL (0.1-0.6); Hematocrit 49.2 % (39.0-52.0); Hemoglobin 16.5 g/dL (13.0-18.0); Mean Corp Hgb Conc. 33.5 g/dL (33.0-37.0); Mean Corpuscular Hgb 29.6 pg (27.0-31.0); Mean Corpuscular Volume 88.3 fL (80.0-94.0); Nucleated Red Blood Cells % 0 % (-); Platelet Count 279 10^3/uL (130-400); Red Blood Cell Count 5.57 10^6/uL (4.70-6.10); Red Cell Dist. Width 12.4 % (11.5-14.5); Reticulocyte Count 1.9 % (0.4-2.8); White Blood Cell Count 5.7 10^3/uL (4.8-10.8)
[2024-07-17 09:47] VITALS: BP 119/76
--- NOTE | 2024-07-17 09:59 | ED.CVA ---
History of Present Illness
General
Chief Complaint: CVA/TIA Symptoms
Source: patient
Exam Limitations: none
Time Seen by Provider: 07/17/24 08:54
Nursing documentation reviewed up to this point in time: agreed with
Onset of Stroke Symptoms
Onset of symptoms known: Yes
Date of onset of symptoms: 07/16/24
History of Present Illness
History of Present Illness:
Patient with history of CVA which occurred last year during cardiac catheterization, with residual left-sided tingling sensation, currently on aspirin and Plavix, presents to ED secondary to intermittent posterior headache over the past 1 month,
which worsened yesterday afternoon, associated with dizziness and worsening left foot numbness sensation. Denies blurred vision. Denies nausea or vomiting. Denies weakness. Denies difficulty with speech or swallowing. Denies chest pain. Denies
recent illness. Denies recent change in medications or diet. Patient was able to speak with his primary care physician and has an outpatient MRI brain scheduled.
Past History
Past History
ED Past Medical History: CAD, CVA (Right pontine/cerebellar peduncle infarct - left-sided paresthesia, left-sided cerebellar hemisphere infarct and very small left frontal infarction 09/05/23), HTN and Hypercholesterolemia
ED Past Surgical History: Cardiac (angioplasty and stent to left anterior descending artery 09/05/23)
Social History
Tobacco: Non-smoker
Alcohol: None
Personal: Single
Living: with roommate
Employment: Employed
Review of Systems
Review of Systems
Allergies reviewed?: Yes
All Other Systems: ROS reviewed and negative except as documented in HPI and ROS
Constitutional: Reports no symptoms
Respiratory: Reports no symptoms
Cardiac: Reports no symptoms
ABD/GI: Reports no symptoms
Musculoskeletal: Reports no symptoms
Skin: Reports no symptoms
Neurological: Reports dizzy, headache and numbness
Phy Exam
Physical Exam
Physical Exam:
Physical Exam
General: mild painful distress, not acutely ill. afebrile
Head: nc/at. eomi
Neck: supple. normal range of motion. no carotid bruit noted
Heart: s1/s2 regular rate and rhythm, no murmur.
Lungs: no acute respiratory distress. clear bilaterally
Abdomen: normal bowel sounds. not tender.
Neuro: alert and oriented x 3. no focal neurological deficits. normal speech
Skin: no rash
Psychiatric: well kept. interactive and cooperative
Extremities: no edema. no calf tenderness.
Course
Orders/Labs/Results
Orders:
Orders
07/17/24 08:[address] [CT Head W/o Iv Contrast] Stat
Comment:
Reason For Exam: BUSTAMANTE, unilateral numbness
07/17/24 09:24
Acetaminophen [Tylenol] 650 mg PO NOW STA
07/17/24 09:25
NEUROLOGY CONSULT Urgent
Consulting Provider: Jaya Pisano
Was physician already notified: Yes
Reason for consult: headache/numbness
07/17/24 09:26
Basic Metabolic Panel Urgent
CBC/With Reticulocyte Count Urgent
CRP [C-Reactive Protein] Urgent
Magnesium Urgent
07/17/24 09:39
CT Head & Neck Angio W/wo IV Urgent
Comment:
Reason For Exam: dizziness
Abnormal Lab Results
07/17/24
09:26
Absolute Lymphs (auto) 1.1 L 10^3/uL
(1.2-3.4)
Lymphocytes % 19.9 L %
(20.5-51.1)
Glucose 100 H mg/dl
(70-99)
07/17/24 09:26
07/17/24 09:26
Vital Signs
Initial and Last Documented VS:
Initial Vital Signs
Temp Pulse Resp BP Pulse Ox
98.4 F 84 18 145/94 99
07/17/24 08:14 07/17/24 08:14 07/17/24 08:14 07/17/24 08:14 07/17/24 08:14
Last Documented Vital Signs
Temp Pulse Resp BP Pulse Ox
98.4 F 71 20 109/76 96
07/17/24 08:14 07/17/24 10:00 07/17/24 10:00 07/17/24 10:00 07/17/24 10:00
MDM/Problems Addressed
MDM/Problems Addressed:
CT head and CT angiogram of head and neck reviewed and discussed with patient and on-call neurologist,
evaluated the patient at bedside - nerve block administered by Dr. Pisano with improvement in symptoms. Pt will be discharged home in stable condition, with recommendation for continual evaluation/tx with his PCP.
*Critical Care Note
Total Time (30-74mins, 75-104mins- exclusive of procedures): Not Applicable
ED Attending Note
-
Portions of this chart may have been created with voice recognition software.� Occasional wrong word or��sound alike� substitutions may have occurred due to the inherent limitations of voice recognition software.
Discharge Plan
Departure
Patient Disposition: Home (Routine Discharge)
Date of Disposition: 07/17/24
Time of Disposition: 12:13
Patient with high blood pressure during this ER visit?: Yes
Condition: Good
Discharge Problem:
Headache
Instructions: Headache, Adult (DC)
Prescriptions:
No Action
therapeutic multivitamin Tablet
0.5 tab PO DAILY PRN (Reason: Supplement)
Xiidra 5 % Dropperette
1 drp BOTH EYES DAILYPRN PRN (Reason: dry eyes)
[place] 3
1 tab PO DAILY
acetaminophen [Tylenol Extra Strength] 500 mg Tablet
500 mg PO DAILYPRN PRN (Reason: mild pain)
budesonide-formoterol [Symbicort] 160-4.5 mcg/actuation Hfa Aerosol Inhaler
1 puff INHALATION R DAILY PRN (Reason: congestion)
famotidine [Pepcid] 20 mg tablet
20 mg PO QPM
meclizine 25 mg Tablet
25 mg PO Q8HPRN PRN (Reason: dizzy) 7 Days Qty: 30 0RF
atorvastatin 80 mg Tablet
80 mg PO QPM 90 Days Qty: 90 0RF
aspirin [Children's Aspirin] 81 mg Tablet,Chewable
81 mg PO DAILY 90 Days Qty: 90 2RF
Brilinta 90 mg Tablet
90 mg PO BID 90 Days Qty: 180 0RF
Referrals:
Flip Cazares MD [Family Provider] -
Stand Alone Forms: Return to Work
Activity Restrictions/Additional Instructions:
As discussed, please follow-up with your primary care physician for continual evaluation and treatment. In ED, CT scan did not reveal any acute abnormalities.
Interventions
Interventions:
*Risk Screen - Suicide Last Done: 07/17/24 08:14
*General Assessment Last Done: 07/17/24 08:14
*Neglect/Abuse Screening Last Done: 07/17/24 08:14
*Nursing Disposition Last Done: 07/17/24 12:31
ED- Cardiac Assessment Last Done: 07/17/24 09:20
ED- Neurological Assessment Last Done: 07/17/24 09:20
ED- Pulmonary Assessment Last Done: 07/17/24 09:20
ED Swallowing Screen Last Done: 07/17/24 09:20
Discharge Date and Time
Discharge Date/Time: 07/17/24 12:34
Print Language: KOREAN
[2024-07-17 10:00] VITALS: BP 109/76
[2024-07-17 10:03] VITALS: BMI 23.5
[2024-07-17 10:04] LABS: Blood Urea Nitrogen 16 mg/dl (9-20); Calcium 9.5 mg/dl (8.4-10.2); Carbon Dioxide 27 mmol/L (22-30); Chloride 104 mmol/L (98-107); Estimated Creatinine Clearance 88 ml/min; Glucose 100 mg/dl (70-99); Magnesium 2.2 mg/dl (1.6-2.3); Potassium 4.4 mmol/L (3.5-5.1); Sodium 139 mmol/L (135-145); eGFR > 60.00
[2024-07-17 10:11] LABS: C-Reactive Protein < 5.00 mg/L (0.0-10.00)
--- NOTE | 2024-07-17 14:53 | W.PN.UPDATE ---
Update Note
Progress Note Update
procedure note
17412.50 bilateral occipital nerve block, bilateral SPG block
90053.50 bilateral supraorbital nerve block
trigger point inj 1-2
diagnosis:
M54.81 occipital neuralgia
G50.0 supraorbital neuralgia
M79.10 myalgia
in a 10 cc syringe, 22g x1.5 in needle, drawn 10 cc bupivicaine 0.5%
bilateral occipital nerves at splenius capitis inj 3 cc each
left C3 trigger point 2cc
right trapezius trigger point 2cc
in a 3 cc syringe, drawn 2 cc bupivicaine 0.5%
with 30g x0.5 in needle, bilateral supraorbital nerves injected 0.25 cc each
using 1.25 in angiocath, 0.75 cc bupivicaine sprayed in each nostril
--- NOTE | 2024-07-17 15:09 | CON.NEURO ---
Neuro Assessment/Plan
Assessment
cervicogenic migraine and vertigo
chronic stroke during cardiac cath/stent placement
I reviewed CTA imaging showing mild atherosclerosis, no stenosis
Plan
I performed bilateral occipital nerve block, left C3 TPI, right trapezius TPI, bilateral supraorbital nerve block, and bilateral sphenopalatine ganglion block, and OMT cervical mobilization and suboccipital release with improvement in headache and
dizziness
d/c home
discussed with patient and agree with cardiology's plan of completing Plavix on the anniversary of his stent
has outpatient MRI scheduled this Saturday but it will not change anything even if another stroke is seen
Consultation
Order
Date of Consultation: 07/17/24
Requesting Provider: Erich Diaz
Reason for Consult: dizziness, headache
Subjective/Objective
Subjective Data
Date of Service: July 17, 2024
from ED physician note:
Patient with history of CVA which occurred last year during cardiac catheterization, with residual left-sided tingling sensation, currently on aspirin and Plavix, presents to ED secondary to intermittent posterior headache over the past 1 month,
which worsened yesterday afternoon, associated with dizziness and worsening left foot numbness sensation. Denies blurred vision. Denies nausea or vomiting. Denies weakness. Denies difficulty with speech or swallowing. Denies chest pain. Denies
recent illness. Denies recent change in medications or diet. Patient was able to speak with his primary care physician and has an outpatient MRI brain scheduled.
He tells me that the headache begins at the bilateral skull base and radiates to the right presybeterian and top of the head. he denies vision loss, double vision, or hearing loss. no neck stiffness.
+right ear tinnitus with the dizziness.
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
Objective Data
Vital Signs
Temp Pulse Resp BP Pulse Ox
36.9 C 71 20 109/76 96
07/17/24 08:14 07/17/24 10:00 07/17/24 10:00 07/17/24 10:00 07/17/24 10:00
Lab Results
07/17/24 09:26
07/17/24 09:
Sodium 139 mmol/L (135-145) 07/17/24 09:
Potassium 4.4 mmol/L (3.5-5.1) 07/17/24:
BUN 16 mg/dl (9-20) 07/17/24 09:
Glucose 100 mg/dl (70-99) H 07/17/24:
Calcium 9.5 mg/dl (8.4-10.2) 07/17/24:
Patient Allergies
No Known Allergies Allergy (Verified 07/17/24 08:14)
Physical Exam
-
AAOx3, speech clear, language intact
VFF, EOMI, face symmetric
full strength b/l UE/LE, no pronator drift
sensation intact to touch
tender bilateral RAZIA, bilateral supraorbital nerves. palpated L c3 subluxation with trigger point left paraspinal; palpated tender right trap trigger point
Medications
-
Home Medications
�Medication �Instructions �Recorded
[place] 3 1 tab PO DAILY Supplement 09/05/23
lifitegrast 5 % eye drops in a 1 drp BOTH EYES DAILYPRN PRN dry 09/05/23
dropperette (Xiidra) eyes
therapeutic multivitamin 0.5 tab PO DAILY PRN Supplement 09/05/23
acetaminophen 500 mg tablet 500 mg PO DAILYPRN PRN mild pain 09/23/23
(Tylenol Extra Strength)
budesonide-formoterol HFA 160 1 puff inhalation R DAILY PRN 09/23/23
mcg-4.5 mcg/actuation aerosol congestion
inhaler (Symbicort)
famotidine 20 mg tablet (Pepcid) 20 mg PO QPM Gastrointestinal Issue 09/23/23
aspirin 81 mg chewable tablet 81 mg PO DAILY 90 days #90 tabs 09/24/23
(Children's Aspirin)
atorvastatin 80 mg tablet 80 mg PO QPM 90 days #90 tabs 09/24/23
meclizine 25 mg tablet 25 mg PO Q8HPRN PRN dizzy 7 days 09/24/23
#30 tabs
ticagrelor 90 mg tablet (Brilinta) 90 mg PO BID 90 days #180 tabs 09/24/23
== END 2024-07-17 12:34 | disposition home or self-care (01) ==
LOC: EMR 08:12
PROVIDERS: CONSULT PHYSICIAN Psychiatry & Neurology Clinical Neurophysiology; EMERGENCY PHYSICIAN Emergency Medicine; FAMILY PHYSICIAN Internal Medicine
DX: R51.9 Headache, unspecified (principal); I10 Essential (primary) hypertension
CPT/HCPCS: 99285; 70450; 70496; 70498; 80048; 83735; 85025; 85045; 86140; Q9967

== ENCOUNTER → 2024-07-19 09:39 | Outpatient (REF) | payer OTHER, SELFPAY | LOC: PAVMRI 09:39 | PROVIDERS: ATTENDING PHYSICIAN Internal Medicine | DX: R42 Dizziness and giddiness (principal); R51.9 Headache, unspecified; Z86.73 Personal history of transient ischemic attack (TIA), and cerebral infarction without residual deficits | CPT/HCPCS: 70551 ==

== ENCOUNTER 2024-11-28 10:13 | Emergency (ER) | payer OTHER, SELFPAY ==
[2024-11-28 10:15] VITALS: BP 112/78
--- NOTE | 2024-11-28 10:38 | ED.GENMED ---
History of Present Illness
General
Chief Complaint: Musculo-Skeletal Complaint
Source: patient
Time Seen by Provider: 11/28/24 10:24
History of Present Illness
History of Present Illness:
64-year-old male presents to the emergency room complaining of pain in his right posterior ankle which occurred while he was playing pickle ball. Patient states he was lunging forward to get a ball when he felt a pop in the back of his ankle and he
collapsed. He had significant pain in the Achilles tendon area. He suffered some mild abrasions in the fall. He believes his last tetanus shot was less than 10 years ago.
Past History
Past History
ED Past Medical History: CAD, CVA (Right pontine/cerebellar peduncle infarct - left-sided paresthesia, left-sided cerebellar hemisphere infarct and very small left frontal infarction 09/05/23), HTN and Hypercholesterolemia
ED Past Surgical History: Cardiac (angioplasty and stent to left anterior descending artery 09/05/23)
Social History
Tobacco: Non-smoker
Alcohol: None
Personal: Single
Living: with roommate
Employment: Employed
Phy Exam
Physical Exam
Physical Exam:
General: Awake, Alert, Oriented X3. No acute distress.
Vitals: unremarkable
Head: Atraumatic
Eyes: Pupils equal, EOMI
Throat: Airway intact, no exudates
Neck: Trachea midline
Neuro: Nonfocal
Skin: Warm, dry, no rash
Extremities: pulses equal b/l, no edema. Tender palpation along the right Achilles tendon. Dorsiflexion intact of the right foot.
Course
Orders/Labs/Results
Orders:
Orders
11/28/24 10:36
Ankle, Right 3 view CR [CR Ankle - Right Min 3 Views *] Urgent
Comment:
Reason For Exam: ankle pain
11/28/24 10:37
Acetaminophen [Tylenol] 1,000 mg PO NOW STA
11/28/24 11:00
boot [Ortho Boot Right- Treatment] ONCE
Short or tall?: Short
Vital Signs
Initial and Last Documented VS:
Initial Vital Signs
Temp Pulse Resp BP Pulse Ox
98.0 F 76 16 112/78 98
11/28/24 10:15 11/28/24 10:15 11/28/24 10:15 11/28/24 10:15 11/28/24 10:15
Last Documented Vital Signs
Temp Pulse Resp BP Pulse Ox
98.2 F 72 16 114/76 99
11/28/24 11:47 11/28/24 11:47 11/28/24 11:35 11/28/24 11:35 11/28/24 11:35
MDM/Problems Addressed
Differential Diagnosis Includes:
Partial Achilles tear, Achilles rupture, ankle sprain
MDM/Problems Addressed:
Imaging of the ankle shows no acute abnormality. Physical exam reveals tenderness to palpation along the Achilles. Dorsiflexion is intact. Suspect either partial or complete Achilles rupture. Will place in a Ortho boot. I have emphasized to the
patient he should remain nonweightbearing until he follows up with orthopedics. He asked about the safety of driving which I told him I did not feel it was safe to drive particularly wearing an Ortho boot.
*Radiology
Radiology exam reviewed: preliminary read by ED provider (No acute abnormality to my review of the patient's ankle x-ray)
*Pulse Oximetry
SaO2: 98
Oxygen Mode of Delivery: Room air
Patient hypoxic: no
*Critical Care Note
Total Time (30-74mins, 75-104mins- exclusive of procedures): Not Applicable
ED Attending Note
-
Portions of this chart may have been created with voice recognition software.� Occasional wrong word or��sound alike� substitutions may have occurred due to the inherent limitations of voice recognition software.
Discharge Plan
Departure
Patient Disposition: Home (Routine Discharge)
Date of Disposition: 11/28/24
Time of Disposition: 11:06
Patient with high blood pressure during this ER visit?: No
Condition: Good
Discharge Problem:
Achilles rupture, right
Prescriptions:
No Action
therapeutic multivitamin Tablet
0.5 tab PO DAILY PRN (Reason: Supplement)
Xiidra 5 % Dropperette
1 drp BOTH EYES DAILYPRN PRN (Reason: dry eyes)
[place] 3
1 tab PO DAILY
acetaminophen [Tylenol Extra Strength] 500 mg Tablet
500 mg PO DAILYPRN PRN (Reason: mild pain)
budesonide-formoterol [Symbicort] 160-4.5 mcg/actuation Hfa Aerosol Inhaler
1 puff INHALATION R DAILY PRN (Reason: congestion)
famotidine [Pepcid] 20 mg tablet
20 mg PO QPM
meclizine 25 mg Tablet
25 mg PO Q8HPRN PRN (Reason: dizzy) 7 Days Qty: 30 0RF
atorvastatin 80 mg Tablet
80 mg PO QPM 90 Days Qty: 90 0RF
aspirin [Children's Aspirin] 81 mg Tablet,Chewable
81 mg PO DAILY 90 Days Qty: 90 2RF
Brilinta 90 mg Tablet
90 mg PO BID 90 Days Qty: 180 0RF
Referrals:
Adam Bowens MD [Active, Orthopedics]
Stand Alone Forms: Return to Work
Activity Restrictions/Additional Instructions:
Do not place any weight on your right foot until you see the orthopedic surgeon. You can take Tylenol and Motrin for pain. Motrin is fine for you to take for a few days now that you are only taking 81mg of aspirin a day.
Interventions
Interventions:
*Risk Screen - Suicide Last Done: 11/28/24 10:15
*General Assessment Last Done: 11/28/24 11:35
*Neglect/Abuse Screening Last Done: 11/28/24 10:15
*ED- Fall Risk Assessment Last Done: 11/28/24 11:35
*Nursing Disposition Last Done: 11/28/24 11:35
ED-Musculoskeletal Assessment Last Done: 11/28/24 10:14
Discharge Date and Time
Discharge Date/Time: 11/28/24 11:49
Print Language: [place]
[2024-11-28] MEDS: TYLENOL 1000 MG PO (11:15)
[2024-11-28 11:35] VITALS: BP 114/76
== END 2024-11-28 11:49 | disposition home or self-care (01) ==
LOC: EMR 10:13
PROVIDERS: EMERGENCY PHYSICIAN Emergency Medicine; FAMILY PHYSICIAN Internal Medicine
DX: S86.011A Strain of right Achilles tendon, initial encounter (principal); X50.1XXA Overexertion from prolonged static or awkward postures, initial encounter; Y93.69 Activity, other involving other sports and athletics played as a team or group; I25.10 Atherosclerotic heart disease of native coronary artery without angina pectoris; I10 Essential (primary) hypertension; E78.00 Pure hypercholesterolemia, unspecified; Z95.5 Presence of coronary angioplasty implant and graft; Z79.82 Long term (current) use of aspirin; Z86.73 Personal history of transient ischemic attack (TIA), and cerebral infarction without residual deficits
CPT/HCPCS: 99283; 29515; 73610

== ENCOUNTER → 2024-12-05 07:55 | Outpatient (REF) | payer OTHER, SELFPAY | LOC: MRI 07:55 | PROVIDERS: ATTENDING PHYSICIAN Physician Assistant Medical; FAMILY PHYSICIAN Internal Medicine | DX: S86.011A Strain of right Achilles tendon, initial encounter (principal) | CPT/HCPCS: 73721 ==

== ENCOUNTER 2025-02-10 07:34 | Outpatient (RCR) | payer OTHER, SELFPAY | END 2025-02-10 23:59 | disposition home or self-care (01) | LOC: RPT 07:34 | PROVIDERS: ATTENDING PHYSICIAN Student in an Organized Health Care Education/Training Program; FAMILY PHYSICIAN Internal Medicine | DX: S86.011D Strain of right Achilles tendon, subsequent encounter (principal); Z73.6 Limitation of activities due to disability; X58.XXXD Exposure to other specified factors, subsequent encounter | CPT/HCPCS: 97110; 97162 ==

== ENCOUNTER 2025-02-22 12:19 | Outpatient (RCR) | payer OTHER, SELFPAY | END 2025-02-22 23:59 | disposition home or self-care (01) | LOC: RPT 12:19 | PROVIDERS: ATTENDING PHYSICIAN Student in an Organized Health Care Education/Training Program; FAMILY PHYSICIAN Internal Medicine | DX: S86.011D Strain of right Achilles tendon, subsequent encounter (principal); Z73.6 Limitation of activities due to disability; X58.XXXD Exposure to other specified factors, subsequent encounter | CPT/HCPCS: 97110; 97140 ==

== ENCOUNTER 2025-04-07 16:13 | Outpatient (RCR) | payer OTHER, SELFPAY | END 2025-04-07 23:59 | disposition home or self-care (01) | LOC: RPT 16:13 | PROVIDERS: ATTENDING PHYSICIAN Student in an Organized Health Care Education/Training Program; FAMILY PHYSICIAN Internal Medicine | DX: S86.011D Strain of right Achilles tendon, subsequent encounter (principal); Z47.89 Encounter for other orthopedic aftercare (principal); Z73.6 Limitation of activities due to disability; X58.XXXD Exposure to other specified factors, subsequent encounter; R26.89 Other abnormalities of gait and mobility; M62.81 Muscle weakness (generalized) | CPT/HCPCS: 97110; 97140 ==